=== PATIENT | female | born 1965 | race Caucasian/White ===

== ENCOUNTER 2020-12-25 09:46 | Emergency (ER) | payer SELFPAY ==
--- NOTE | ~2020-12-25 | XR_ITS ---
EXAMINATION: XR chest 2V DATE: 12/25/2020 10:21 INDICATION: Tachycardia. Left chest pain. TECHNIQUE: Frontal and lateral views of the chest were obtained. COMPARISON: None. FINDINGS: A calcified left lung nodule and calcified left hilar lymph nodes are consistent with old g ranulomatous disease. There is blunting of left posterior costophrenic angle, likely scarring. No sig nificant pleural effusion or pneumothorax. The heart size is normal. There is an old healed left rib fracture. IMPRESSION: 1. No acute cardiopulmonary disease. Reviewed, dictated and finalized at location A.
--- NOTE | 2020-12-25 09:50 | ECG_ITS ---
Measurements Intervals [place] Rate: 109 P: [place]: 0 QRS: 60 QRSD: 101 T: 239 QT: 355 QTc: 479 Interpretive Statements ATRIAL FIBRILLATION WITH RAPID VENTRICULAR RESPONSE LEFT VENTRICULAR HYPERTROPHY WITH ST-T CHANGE BORDERLINE ST-T WAVE ABNORMALITY- DIFFUSE LEADS BASELINE ARTIFACT- I, II, III, AVR, AVL, AVF, V1-V6 ABNORMAL ECG Electronically Signed On 12-25-2020 10:26:06 CDT by Delmer Boone D.O.
[2020-12-25 09:54] VITALS: BP 143/95; PULSE 97; RESP 19; TEMP 36.1; O2SAT 98
[2020-12-25 10:28] LABS: Basophils Percent Auto 0.9 % (0.2-1.2); Eosinophils Absolute Auto 0.1 K/mm3 (0-0.3); Eosinophils Percent Auto 1.1 % (0-4.4); Hemoglobin 15.1 g/dL (12.0-15.0); Immature Granulocyte Absolute 0.01 K/mm3 (0.00-0.031); Immature Granulocyte Percent A 0.2 % (0-0.5); Lymphocytes Absolute Auto 1.29 K/mm3 (0.9-3.2); Lymphocytes Percent Auto 29.1 % (18.3-44.2); Mean Corpuscular HGB Conc 34.3 g/dl (32-36); Mean Corpuscular Hemoglobin 30.6 pg (26-34); Mean Corpuscular Volume 89.1 fl (80-100); Mean Platelet Volume 9.8 fl (7.4-10.4); Monocytes Absolute Auto 0.5 K/mm3 (0.1-0.6); Monocytes Percent Auto 11.3 % (2.6-8.5); Neutrophils Absolute Auto 2.5 K/mm3 (1.3-6.7); Neutrophils Percent Auto 57.4 % (45.5-73.1); Platelet Count Result 328 k/mm3 (150-375); Red Blood Count 4.94 M/mm3 (4.2-5.4); Red Cell Distribution Width 13.9 % (11.5-14.5); White Blood Count 4.4 K/mm3 (4.5-10.0)
[2020-12-25] MEDS: ASPIRIN 81 MG CHEWABLE TABLET 324 MG PO (10:31)
[2020-12-25 10:37] LABS: Anion Gap 9 mmol/L (8-16); Blood Urea Nitrogen 17 mg/dL (7-17); Calcium 9.6 mg/dL (8.4-10.2); Carbon Dioxide 26 mmol/L (22-30); Chloride 98 mmol/L (98-107); Estimated CRCL calculation 84 ml/min; Estimated Glomerular Filt Rate > 60; Glucose 142 mg/dL (65-105); Potassium 4.2 mmol/L (3.4-5.0); Sodium 133 mmol/L (137-145)
[2020-12-25 10:43] LABS: INR 0.9; Prothrombin Time 12.6 Seconds (11.1-14.7)
[2020-12-25 10:45] LABS: Partial Thromboplastin Time 27.1 SECONDS (22.3-36.8)
[2020-12-25 10:49] LABS: Troponin I < 0.012 ng/mL (0.000-0.034)
[2020-12-25 11:15] LABS: Thyroid Stimulating Hormone Reflex 0.923 uIU/mL (0.465-4.68)
[2020-12-25 11:19] VITALS: BP 129/92; PULSE 96; RESP 15; O2SAT 100
[2020-12-25 12:42] VITALS: PULSE 76; RESP 12; O2SAT 99
[2020-12-25] MEDS: ENOXAPARIN 80 MG/0.8 ML SYRINGE SUB-Q (12:43)
[2020-12-25 13:00] VITALS: PULSE 61; RESP 15; O2SAT 97
--- NOTE | 2020-12-25 13:00 | PC.NURSE ---
When this RN entered room to give Cardizem as ordered, pt was in NSR on the monitor w/ rate of 61. EDP made aware, meds not given, EKG obtained.
--- NOTE | 2020-12-25 13:06 | ECG_ITS ---
Measurements Intervals [place] Rate: 63 P: 50 DC: 166 QRS: 60 QRSD: 96 T: 50 QT: 407 QTc: 419 Interpretive Statements SINUS RHYTHM POSSIBLE LEFT ATRIAL ENLARGEMENT INCOMPLETE RIGHT BUNDLE BRANCH BLOCK LEFT VENTRICULAR HYPERTROPHY AND ST-T CHANGE MINIMAL Q WAVES- ANTEROLATERAL LEADS BORDERLINE ECG Electronically Signed On 12-25-2020 13:50:05 CDT by Delmer Boone D.O.
[2020-12-25 13:28] LABS: Troponin I < 0.012 ng/mL (0.000-0.034)
--- NOTE | 2020-12-25 13:39 | ED.ARRPALP ---
HPI - Arrhythmia/Palpitations General Chief Complaint: Arrhythmia/Palpitations Stated Complaint: fast heart rate more frequent lately Time Seen by Provider: 12/25/20 10:56 Source: patient Mode of arrival: ambulatory Limitations: no limitations History of Present Illness HPI narrative: Patient is 55 years old white male presents with intermittent palpitation for the last 70 years, got worse over the last few days almost once or twice a day. Patient never been seen by a physician, smokes and drinks occasionally. Patient denies any fever, chills, nausea, vomiting, shortness of breath or chest pain. Related Data Allergies Allergy/AdvReac Type Severity Reaction Status Date / Time No Known Allergies Allergy Mild Verified 12/25/20 10:08 Review of Systems Review of Systems: Narrative: CONSTITUTIONAL: Denies fever, chills, or sweats. EYES: Denies visual changes, redness, or discharge. ENT: Denies rhinorrhea, congestion, sore throat, or otalgia. CARDIOVASCULAR: Denies chest pain, palpitations, or edema. RESPIRATORY: Denies cough or dyspnea. GASTROINTESTINAL: Denies abdominal pain, nausea, vomiting, or diarrhea. GENITOURINARY: Denies dysuria or hematuria. SKIN: Denies rash or itching. MUSCULOSKELETAL: Denies back pain, joint pain, or myalgia. NEUROLOGIC: Denies headache, numbness, or weakness. PSYCHIATRIC: Denies anxiety or depression. PMFSH Social History Social History Gender identity (if verbalized by the patient): Male Exam Narrative: Exam Narrative: General appearance: Well-developed, well-nourished Skin: Normal color Head: Normocephalic, nontraumatic Eyes: Clear conjunctiva ENT: Oropharynx normal, ears normal, nose normal Neck: Supple, nontender Chest and respiratory: Airway patent, no respiratory distress, no accessory muscle use Heart: Tachycardia, irregular irregularity Abdomen: Soft, nontender, no organomegaly, quiet bowel sounds Vascular: Normal peripheral pulses, normal capillary refill. Musculoskeletal: Normal range of motion, nontender back Neurologic: Alert and oriented ?3, [employer] is normal as tested, no gross motor deficit Course Course Emergency Course: Improving Vital Signs Vital signs: Vital Signs Temperature 36.1 C L 12/25/20 09:54 Pulse Rate 97 12/25/20 09:54 Respiratory Rate 19 12/25/20 09:54 Blood Pressure 143/95 H 12/25/20 09:54 Pulse Oximetry 98 12/25/20 09:54 Temperature 36.1 C L 12/25/20 09:54 Pulse Rate 61 12/25/20 13:00 Respiratory Rate 15 12/25/20 13:00 Blood Pressure 129/92 H 12/25/20 11:19 Pulse Oximetry 97 12/25/20 13:00 MDM - Arrhythmia/Palpitations MDM Narrative Medical decision making narrative: Patient presents with palpitation, monitor showing A. fib with RVR. Labs, EKG, chest x-ray ordered. Further plan to follow Differential Diagnosis Differential diagnosis: Likely palpitations, anxiety, sinus tachycardia, artial fibrillation and supraventricular tachycardia Lab Data Result diagrams: 12/25/20 10:07 12/25/20 10:07 Labs: Lab Results 12/25/20 12/25/20 12/25/20 Range/Units 10:06 10:07 10:07 WBC 4.4 L (4.5-10.0) K/mm3 RBC 4.94 (4.2-5.4) M/mm3 Hgb 15.1 H (12.0-15.0) g/dL Hct 44.0 (37.0-47.0) % MCV 89.1 (80-100) fl MCH 30.6 (26-34) pg MCHC 34.3 (32-36) g/dl RDW 13.9 (11.5-14.5) % Plt Count 328 (150-375) k/mm3 MPV 9.8 (7.4-10.4) fl Immature Gran % (Auto) 0.2 (0-0.5) % Neut % (Auto) 57.4 (45.5-73.1) % Lymph % (Auto) 29.1 (18.3-44.2) % [place] % (Auto) 11.3 H (2.6-8.5) % Eos % (Auto) 1.1 (0-4.4) % Baso % (Auto) 0
[2020-12-25] MEDS: METOPROLOL TARTRATE 25 MG TABLET PO (13:50)
[2020-12-25 14:00] VITALS: BP 159/101; PULSE 70; RESP 16; O2SAT 99
== END 2020-12-25 22:27 | disposition home or self-care (01) ==
PROVIDERS: Emergency Provider Emergency Medicine
DX: I48.91 Unspecified atrial fibrillation (principal); F17.200 Nicotine dependence, unspecified, uncomplicated; I51.7 Cardiomegaly; R94.31 Abnormal electrocardiogram [ECG] [EKG]; I45.10 Unspecified right bundle-branch block
CPT/HCPCS: 36415; 71046; 80048; 84443; 84484; 85025; 85610; 85730; 93005; 96372; 99284; A9270; J1650

== ENCOUNTER 2021-01-09 08:50 | Outpatient (CLI) | payer SELFPAY ==
--- NOTE | 2021-01-09 | ECHO_ITS ---
Patient Info Name: Ramiro Esposito Age: 55 years : 1965 Gender: Male Ht: 74 in Wt: 173 lbs BSA: 2.02 m2 HR: 51 bpm BP: 145 / 93 mmHg Heart Rhythm: Bradycardia Exam Date: 01/09/2021 9:28 AM Exam Location: [facility] Patient Status: Outpatient Admit Date: 01/09/2021 Staff Ordering Physician: Jackson Ashby MD Rn Cardiac Cath: Lorelei Hauser RDCS Attending Provider: Jackson Ashby MD Exam Type: CA echo doppler color flow Study Info Indications I48.0 - Paroxysmal atrial fibrillation Complete two-dimensional, color flow and Doppler transthoracic echocardiogram is performed. Summary 1. Complete two-dimensional, color flow and Doppler transthoracic echocardiogram is performed. 2. Mild LVH, borderline LV enlargement; normal LV systolic and diastolic function; LVEF about 60-65%. Mild right atrial enlargement. Normal mitral valve structure, no significant MR. Normal aortic valve structure, trace to mild aortic regurgitation. Trace TR, RVSP 35 mmHg. Sinus bradycardia. Left Ventricle Left ventricular systolic function is normal, estimated at 60-65%. The left ventricular diastolic function is normal. Right Ventricle Right ventricular chamber dimension is normal. Right ventricular systolic function is normal. Left Atria Left atrial chamber dimension is normal. Right Atria Right atrial chamber dimension is mildly enlarged. Aortic Valve The aortic valve is normal. There is no aortic valve stenosis. There is trace aortic valve regurgitation. Pulmonic Valve The pulmonic valve is normal. Mitral Valve The mitral valve has normal leaflets. There is no mitral valve regurgitation. Tricuspid Valve The tricuspid valve leaflets are normal. There is trace tricuspid valve regurgitation. Inferior Vena Cava Dilated inferior vena cava with <50% collapse upon inspiration consistent with elevated right atrial pressure, 10 mmHg. Left Ventricular Outflow Tract Name Value Normal LVOT 2D LVOT Diameter 2.4 cm LVOT Doppler LVOT Peak Gradient 4 mmHg LVOT Mean Gradient 2 mmHg LVOT VTI 26 cm LVOT VTI/AV VTI Ratio 0.8 LVOT Stroke Volume 118 ml LVOT CO 4.5 l/min LVOT CI 2.2 l/min/m2 Pulmonic Valve Name Value Normal RVOT Doppler RVOT Peak Gradient 1 mmHg PV Doppler PV Peak Gradient 2 mmHg Mitral Valve Name Value Normal MV Doppler
== END 2021-01-09 08:51 | disposition home or self-care (01) ==
PROVIDERS: Visit Provider Internal Medicine Cardiovascular Disease
DX: I48.0 Paroxysmal atrial fibrillation (principal)
CPT/HCPCS: 93306

== ENCOUNTER 2023-02-28 20:49 | Emergency (ER) | payer SELFPAY ==
[2023-02-28 20:49] VITALS: BP 102/78; PULSE 92; RESP 19; TEMP 36.7; O2SAT 96
--- NOTE | 2023-02-28 20:56 | PC.NURSE ---
Patient keeps repeating that he wants to leave, ERP notified and in room with patient and this nurse at this time.
--- NOTE | 2023-02-28 20:59 | ED.SYNCOPE ---
HPI - Syncope General Chief Complaint: Syncope Stated Complaint: PASSED OUT Time Seen by Provider: 02/28/23 20:55 History of Present Illness HPI narrative: Patient is a 57-year-old male with history of daily ETOH use here after passing out at the bar. He notes that he believes he drank too much today without eating and he got too drunk and passed out. He does not remember the incident but does believe he passed out. He states that he does not believe he hit his head but he is unsure. He does not believe he had prodromal chest pain or shortness of breath. He currently denies any symptoms. Is alert and oriented x4. Related Data Allergies Allergy/AdvReac Type Severity Reaction Status Date / Time No Known Allergies Allergy Mild Verified 12/25/20 10:08 Review of Systems Review of Systems: CONSTITUTIONAL: Denies fever, chills, or sweats. CARDIOVASCULAR: Denies chest pain, palpitations. Had a syncopal episode. RESPIRATORY: Denies cough or dyspnea. GASTROINTESTINAL: Denies abdominal pain, nausea, vomiting MUSCULOSKELETAL: Denies back pain, joint pain, or myalgia. NEUROLOGIC: Denies headache, numbness, or weakness. [facility] Social History Social History Gender identity (if verbalized by the patient): Male Exam Narrative: GENERAL: Well-appearing, well-nourished, and in no acute distress. HEAD: Normocephalic, atraumatic. EYES: PERRLA and EOMI. ENT: Nares clear, no rhinorrhea or epistaxis. Mucous membranes moist. NECK: Supple. No C-spine tenderness CHEST: Clear to auscultation. No respiratory distress. HEART: Regular rate and rhythm. No murmur heard. Normal peripheral pulses. No chest wall tenderness ABDOMEN: Soft, nontender, nondistended, normal active bowel sounds. EXTREMITIES: Normal range of motion. No edema. No thoracic or lumbar tenderness SKIN: Warm, dry, no rash. NEURO: No focal deficits. Alert and oriented x3. Clinically sober. PSYCH: Normal mood and affect. Course Course Emergency Course: Patient seen evaluated. In no acute distress. He appears to be clinically sober at this time. He reportedly had a syncopal episode at a bar however he does not remember it. He is currently alert and oriented. He did agree to vital signs however when I discussed doing possible lab work, imaging, EKG he adamantly refuses. He would prefer to leave this time. Patient is of sound mind and has capacity to make his own medical decisions at this time. At this time he would like to leave the hospital against medical advice. Risk of leaving include but no limited to cardiac arrhythmia, . Patient understands the risks at this time and would still like to leave the hospital against medical advice. He is advised that he return to the hospital at any time to complete further workup. He is being discharged with a sober ride home. Vital Signs Vital signs: Vital Signs Temperature 98.1 F 02/28/23 20:49 Pulse Rate 92 02/28/23 20:49 Respiratory Rate 19 02/28/23 20:49 Blood Pressure 102/78 02/28/23 20:49 Pulse Oximetry 96 02/28/23 20:49 Oxygen Delivery Room Air 02/28/23 20:49 Temperature 98.1 F 02/28/23 20:49 Pulse Rate 92 02/28/23 20:49 Respiratory Rate 19 02/28/23 20:49 Blood Pressure 102/78 02/28/23 20:49 Pulse Oximetry 96 02/28/23 20:49 Oxygen Delivery Room Air 02/28/23 20:49 Discharge Plan Discharge Clinical Impression: Syncope and collapse Patient Disposition: Left Against Medical Advice Condition: Guarded Prognosis Prescriptions: No Action metoprolol tartrate [Lopressor] 50 mg tablet 25 mg PO Q12H Qty: 60 0RF aspirin [Adult Aspirin Regimen] 81 mg tablet,delayed release (DR/EC) 81 mg PO DAILY Qty: 30 0RF Follow-up/Referrals: Barbara Barrientos MD [Primary Care Provider] - Time of Disposition: 21:07
== END 2023-02-28 21:04 | disposition left against medical advice (07) ==
PROVIDERS: Emergency Provider Student in an Organized Health Care Education/Training Program; PCP Family Medicine
DX: R55 Syncope and collapse (principal)
CPT/HCPCS: 99281

== ENCOUNTER 2023-07-15 13:21 | Inpatient (IN) | payer MEDICAID, SELFPAY ==
[2023-07-15] VITALS (14 sets, daily range): BP systolic 119–159; BP diastolic 91–121; PULSE 78–134; RESP 14–28; TEMP 36.2–36.9; O2SAT 95–100; BMI 26.0
--- NOTE | ~2023-07-15 | CT_ITS ---
EXAMINATION: CT abdomen pelvis w con DATE: 07/15/2023 14:35 INDICATION: Abdominal pain TECHNIQUE: Computed tomography (CT) of the abdomen and pelvis was performed with 100 mL Omnipaque-350 intravenous contrast. Automated exposure control and iterative reconstruction technique were employe d. The dose-length product was 643.90 mGy-cm. COMPARISON: None FINDINGS: There are small bilateral posterior layering pleural effusions. Groundglass opacities and some smooth septal line thickening in the bilateral lower lungs with dependent predominance likely combination o f atelectasis and mild pulmonary edema. Couple small calcified pleural plaques along the parietal ple ura at the posterior left lung base. Cardiomegaly. Atherosclerotic coronary artery calcification. No pericardial effusion. There is a small amount of perihepatic ascites. Fluid density at the periphery of the normal nondilated gallbladder which could represent either additional minimal ascites or edema tous wall thickening of the gallbladder wall. There is a gradient of increasing dependent density in the gallbladder consistent with layering sludge. Spleen, pancreas, bilateral kidneys and right adrena l gland are normal. Fusiform relatively low density left adrenal mass with Hounsfield units of 11 on postcontrast imaging most likely representing an adenoma. Small fat-containing umbilical hernia. Blad piotr is normal. There is fluid throughout much of the colon consistent with nonspecific diarrhea. Ther e are few sigmoid diverticula without adjacent from trace stranding to suggest diverticulitis. Small bowel and appendix are normal. No abscess or free intraperitoneal gas. No pathologically enlarged abd ominal or pelvic lymphadenopathy. Severe lumbar and moderate lower thoracic spondylosis. IMPRESSION: 1. Likely congestive heart failure with cardiomegaly, mild pulmonary edema at the lung bases and smal l bilateral pleural effusions. 2. Small amount of perihepatic and pericholecystic ascites which is nonspecific but which could also be related to congestive heart failure. 2. Fluid scattered throughout the colon consistent with nonspecific diarrhea. Reviewed, dictated and finalized at location A. GE HAND IMPRESSION: 1. Likely congestive heart failure with cardiomegaly, mild pulmonary edema at t he lung bases and small bilateral pleural effusions. 2. Small amount of perihepatic and pericholecystic ascites which is nonspecific but which could also be related to congestive heart failure. 2. Fluid scattered throughout the colon consistent with nonspecific diarrhea.
--- NOTE | ~2023-07-15 | NM_ITS ---
EXAMINATION: NM ivis stress w perfusion DATE: 07/17/2023 11:01 INDICATION: Congestive heart failure TECHNIQUE: Rest images were obtained following intravenous administration of 11 mCi Tc99m tetrofosmin (Myoview). The patient was infused intravenously with Lexiscan (Regadenoson). Then, 33.6 mCi Tc99m t etrofosmin (Myoview) was administered intravenously, and stress images were obtained in both the supi ne and prone positions. Data was reconstructed into short axis and horizontal and vertical long axis SPECT images. Gated SPECT images were also obtained. COMPARISON: None. FINDINGS: There is some likely diaphragmatic attenuation artifact along the inferior wall on the rest and stress images obtained in the supine position which normalizes with prone post stress imaging at stress and additional small region of decreased activity at the basilar anterolateral segment on the supine post stress imaging. There are no definitive perfusion abnormalities on the post stress imagi ng obtained in the prone position to suggest ischemia or infarction. Left ventricular enlargement wi th calculated end-diastolic volume of 255 mL. There is global hypokinesis with mild to moderately dec reased left ventricular ejection. Fraction measuring 32%. IMPRESSION: 1. Normal myocardial perfusion during stress. 2. Left ventricular enlargement with global hypokinesis resulting in mild to moderately decreased eje ction fraction measuring 32%. Reviewed, dictated and finalized at location A. R RECONNAISSANCE VEHICLE DRIVER IMPRESSION: 1. Normal myocardial perfusion during stress. 2. Left ventricular enlargement with global hypokinesis resulting in mild to mo derately decreased ejection fraction measuring 32%.
--- NOTE | ~2023-07-15 | XR_ITS ---
Portable chest x-ray Comparison: 12/25/2020 Clinical History: Dyspnea Findings: There is probable mild pulmonary edema pattern. Minimal left pleural effusion present. Ca rdiomediastinal silhouette is stable. Bones and soft tissues are unremarkable. Impression: Mild pulmonary edema with minimal left pleural effusion. Reviewed, dictated and finalized at [facility]. USEMENT OR RECREATION CARD CHECKER Impression: Mild pulmonary edema with minimal left pleural effusion.
--- NOTE | 2023-07-15 13:31 | ECG_ITS ---
Measurements Intervals [place] Rate: 125 P: [place]: 0 QRS: 17 QRSD: 109 T: -60 QT: 321 QTc: 464 Interpretive Statements ATRIAL FIBRILLATION WITH RAPID VENTRICULAR RESPONSE INCOMPLETE RIGHT BUNDLE BRANCH BLOCK POSSIBLE LEFT VENTRICULAR HYPERTROPHY WITH SECONDARY REPOLARIZATION ABNORMALITIES [VOLTAGE CRITERIA PLUS LAE OR QRS WIDENING] COMPARED TO ECG 12/25/2020 13:12:26 ATRIAL FIBRILLATION NOW PRESENT Electronically Signed On 07-15-2023 13:59:37 DIABETES SPECIALIST by Cleveland Gimenez M.D.
[2023-07-15] MEDS: MORPHINE SULFATE (*CRX) 2 MG/ML INJ IV PUSH (13:48)
[2023-07-15] MEDS: SODIUM CHLORIDE 0.9% IV 1,000 ML 999 ML IV CONT (13:48)
[2023-07-15] MEDS: ONDANSETRON INJ 4 MG/2 ML VIAL IV PUSH (13:48)
[2023-07-15] MEDS: dilTIAZem HCl INJ 25 MG/5 ML VIAL 10 MG IV PUSH (13:49)
[2023-07-15 13:53] LABS: Basophils Absolute Auto 0.1 K/mm3 (0.0-0.1); Basophils Percent Auto 0.7 % (0.2-1.2); Eosinophils Percent Auto 0.3 % (0-4.4); Hematocrit 40.7 % (42.0-52.0); Hemoglobin 13.3 g/dL (14.0-18.0); Immature Granulocyte Absolute 0.02 K/mm3 (0.00-0.031); Immature Granulocyte Percent A 0.3 % (0-0.5); Lymphocytes Absolute Auto 1.55 K/mm3 (0.9-3.2); Lymphocytes Percent Auto 21.1 % (18.3-44.2); Mean Corpuscular HGB Conc 32.7 g/dl (32-36); Mean Corpuscular Hemoglobin 29.4 pg (26-34); Mean Corpuscular Volume 89.8 fl (80-100); Mean Platelet Volume 10.4 fl (7.4-10.4); Monocytes Absolute Auto 0.7 K/mm3 (0.1-0.6); Monocytes Percent Auto 9.4 % (2.6-8.5); Neutrophils Percent Auto 68.2 % (45.5-73.1); Platelet Count Result 291 k/mm3 (150-375); Red Blood Count 4.53 M/mm3 (4.6-6.20); Red Cell Distribution Width 14.9 % (11.5-14.5); White Blood Count 7.3 K/mm3 (4.5-10.0)
[2023-07-15 14:15] LABS: INR 1.1; Prothrombin Time 14.5 Seconds (11.1-14.7)
[2023-07-15 14:19] LABS: Alanine Aminotransferase 53 U/L (6-50); Albumin Level 4.5 g/dL (3.5-5.1); Alkaline Phosphatase 72 U/L (38-126); Anion Gap 12 mmol/L (8-16); Aspartate Amino Transferase 57 U/L (17-59); Bilirubin,Total 0.7 mg/dL (0.2-1.3); Blood Urea Nitrogen 17 mg/dL (9-20); Calcium 9.9 mg/dL (8.4-10.2); Carbon Dioxide 24 mmol/L (22-30); Chloride 98 mmol/L (98-107); Estimated CRCL calculation 92 ml/min; Estimated Glomerular Filt Rate > 60; Ethanol < 10 mg/dL (<10); Glucose 120 mg/dL (65-110); Potassium 4.4 mmol/L (3.4-5.0); Sodium 134 mmol/L (137-145)
--- NOTE | 2023-07-15 14:22 | ECG_ITS ---
Measurements Intervals [place] Rate: 93 P: [place]: 0 QRS: 152 QRSD: 110 T: 28 QT: 390 QTc: 485 Interpretive Statements ATRIAL FIBRILLATION MARKED RIGHT AXIS DEVIATION [QRS AXIS > 100] INCOMPLETE RIGHT BUNDLE BRANCH BLOCK [90+ ms QRS DURATION, TERMINAL R IN V1/V2, 40+ ms S IN I/aVL/V4/V5/V6] POSSIBLE LEFT VENTRICULAR HYPERTROPHY [VOLTAGE CRITERIA PLUS LAE OR QRS WIDENING] NONSPECIFIC ST & T-WAVE ABNORMALITY COMPARED TO ECG 07/15/2023 13:40:19 NO LONGER IN RVR Electronically Signed On 07-15-2023 15:07:15 WHOLESALE MANAGER by Cleveland Gimenez M.D.
--- NOTE | 2023-07-15 14:22 | ED.ABDPAIN ---
HPI - Abdominal Pain General Chief Complaint: Abdominal Pain Stated Complaint: abdominal pain Time Seen by Provider: 07/15/23 13:26 History of Present Illness HPI narrative: patient presents to the emergency department with multiple complaints. Initially describes right lower quadrant pain this been going on for the past month. Initially coming in waves now persistent. Pain was also initially located in the right lower quadrant but now spread across the entire lower part of his abdomen. He has been nauseous without vomiting. States he cannot vomit although he tries. Denies diarrhea has had normal bowel movements. Patient has felt like he has had fevers and chills but does not have a thermometer at home. One put on the monitor he was in AFib RVR and states that a couple years ago he was told he was in AFib but did not take any medications for. Related Data Allergies Allergy/AdvReac Type Severity Reaction Status Date / Time No Known Allergies Allergy Mild Verified 07/15/23 13:22 Review of Systems Review of Systems: Negative except for [facility] Social History Social History Gender identity (if verbalized by the patient): Male Exam Narrative: GENERAL: Well-appearing, well-nourished, and in no acute distress. HEAD: Normocephalic, atraumatic. EYES: PERRLA and EOMI. ENT: Nares clear, no rhinorrhea or epistaxis. Mucous membranes moist. NECK: Supple. CHEST: Clear to auscultation. No respiratory distress. HEART: tachycardia with irregular rhythm. ABDOMEN: Soft, nontender, nondistended. EXTREMITIES: Normal range of motion. No edema. SKIN: Warm, dry, no rash. NEURO: No focal deficits. Alert and oriented x3. PSYCH: Normal mood and affect. Course Course Emergency Course: patient was in AFib RVR. Given bolus of diltiazem and his rate is now 90s. Repeat EKG pending pt back to afib rvr. dilt drip ordered with heparin. cardiology consulted. pt admitted to hospitalist Vital Signs Vital signs: Vital Signs Temperature 36.9 C 07/15/23 13:25 Pulse Rate 125 H 07/15/23 13:25 Respiratory Rate 20 07/15/23 13:25 Blood Pressure 159/117 H 07/15/23 13:25 Pulse Oximetry 100 12/19/23 13:25 Oxygen Delivery Room Air 07/15/23 13:25 Temperature 36.9 C 07/15/23 13:25 Pulse Rate 122 H 07/15/23 16:23 Respiratory Rate 25 H 07/15/23 16:23 Blood Pressure 140/121 H 07/15/23 16:23 Pulse Oximetry 98 07/15/23 16:23 Oxygen Delivery Room Air 07/15/23 13:25 MDM - Abdominal Pain Lab Data 07/15/23 13:46 07/15/23 13:46 Labs: Lab Results 07/15/23 07/15/23 07/15/23 Range/Units 13:46 14:52 15:47 WBC 7.3 (4.5-10.0) K/mm3 RBC 4.53 L (4.6-6.20) M/mm3 Hgb 13.3 L (14.0-18.0) g/dL Hct 40.7 L (42.0-52.0) % MCV 89.8 (80-100) fl MCH 29.4 (26-34) pg MCHC 32.7 (32-36) g/dl RDW 14.9 H (11.5-14.5) % Plt Count 291 (150-375) k/mm3 MPV 10.4 (7.4-10.4) fl Immature Gran % (Auto) 0.3 (0-0.5) % Neut % (Auto) 68.2 (45.5-73.1) % Lymph % (Auto) 21.1 (18.3-44.2) % [place] % (Auto) 9.4 H (2.6-8.5) % Eos % (Auto) 0.3 (0-4.4) % Baso % (Auto) 0.7 (0.2-1.2) % Lymph # (Auto) 1.55 (0.9-3.2) K/mm3 [place] # (Auto) 0.7 H (0.1-0.6) K/mm3 Eos # (Auto) 0.0 (0-0.3) K/mm3 Baso # (Auto) 0.1 (0.0-0.1) K/mm3 Abs Immat Gran (auto) 0.02 (0.00-0.031) K/mm3 Absolute Neuts (auto) 5.0 (1.3-6.7) K/mm3 Absolute Nucleated RBC 0.0 (0.0-0.012) K/mm3 Nucleated RBC % 0.0 (0.0-0.2) % PT 14.5 (11.1-14.7) Seconds INR 1.1 Sodium 134 L (137-145) mmol/L Potassium 4.4 (3.4-5.0) mmol/L Chloride 98 (98-107) mmol/L Carbon Dioxide 24 (22-30) mmol/L Anion Gap 12 (8-16) mmol/L BUN 17 (9-20) mg/dL Creatinine 0.90 (0.7-1.3) mg/dL Estim Creat Clear Calc 92 ml/min Estimated GFR
--- NOTE | 2023-07-15 14:25 | PC.NURSE ---
Pt to CT via stretcher on tele and O2 monitor at this time
[2023-07-15 14:28] LABS: Lactic Acid Reflex 2.6 mmol/L (0.7-2.0)
[2023-07-15 14:30] LABS: Troponin I < 0.012 ng/mL (0.000-0.034)
[2023-07-15 15:05] LABS: Influenza A QL RT-PCR Negative (Negative); Influenza B QL RT-PCR Negative (Negative); RSV RNA, RT-PCR Negative (Negative); SARS-CoV-2 RNA PCR Negative (Negative)
[2023-07-15 15:22] LABS: Troponin I < 0.012 ng/mL (0.000-0.034)
[2023-07-15 16:21] LABS: Amphetamine Screen Urine Negative (Negative); Barbiturate Screen Urine Negative (Negative); Benzodiazepines Screen Urine Negative (Negative); Cannabinoid Screen Urine Negative (Negative); Cocaine Screen Urine Negative (Negative); Methadone Screen Urine Negative (Negative); Opiate Screen Urine Positive (Negative); Phencyclidine Screen Urine Negative (Negative)
[2023-07-15 16:30] LABS: Appearance Urine Clear (Clear); Bacteria Urine None Seen /hpf; Bilirubin Urine Negative (Negative); Blood Urine Negative (Negative); Color Urine Yellow (Yellow); Glucose Urine UA Negative (Negative); Ketones Urine Negative (Negative); Leukocyte Esterase Ur Negative LEU/UL (Negative); Need Manual Microscopic Reviewed; Nitrate Urine Negative (Negative); Non Pathogenic Casts 0-2; Protein Urine Trace mg/dL (Negative); RBC Urine 0-2 /hpf (0-2); Specific Grav Ur 1.025 (1.001-1.035); Squamous Epithelial Cell Urine None seen /hpf (Few); Urobilinogen Urine 0.2 mg/dL (<2.0); WBC Urine 0-5 /hpf
[2023-07-15 16:32] LABS: Add Urine Microscopic? YES
[2023-07-15 16:50] LABS: Reflex Lactic Acid Yes or No Add Lactic
[2023-07-15 17:00] LABS: INR 1.1; Prothrombin Time 14.7 Seconds (11.1-14.7)
[2023-07-15 17:01] LABS: Partial Thromboplastin Time 29.1 SECONDS (22.3-36.8)
--- NOTE | 2023-07-15 17:15 | PM.CNCAR ---
Assessment and Plan Assessment and plan (1) Atrial fibrillation with rapid ventricular response: Code(s): I48.91 - Unspecified atrial fibrillation Status: Acute Assessment and Plan: Recurrence. [id number] 2 (hypertension, CHF). On aspirin. Rate control with Diltiazem drip. Start Sotalol 80 mg PO every 12 hours. Heparin drip started in ED. Discuss that he could benefit from anticoagulation now with CHADS 2 vs aspirin. Obtain echo. (2) Acute exacerbation of CHF (congestive heart failure): Qualifiers: Heart failure type: unspecified Qualified Code(s): I50.9 - Heart failure, unspecified Code(s): I50.9 - Heart failure, unspecified Status: Acute Assessment and Plan: Unknown type, but probably diastolic dysfunction with PAF. Diurese with Lasix 40 mg IV BID. Monitor electrolytes. (3) Abdominal pain: Qualifiers: Abdominal location: right lower quadrant Qualified Code(s): R10.31 - Right lower quadrant pain Code(s): R10.9 - Unspecified abdominal pain Status: Acute Assessment and Plan: Related to volume overload based on CT findings. (4) Tobacco abuse: Code(s): Z72.0 - Tobacco use Status: Acute Assessment and Plan: Counseled regarding smoking cessation. History of Present Illness History of Present Illness Consult date/time: 07/15/23 17:15 Reason For Visit: abdominal pain Narrative: 57 yr old man presents to ER with sob. He has a history of PAF in 2020 with no recurrence until now, smoking, hypertension, dyslipidemia. Reports that for last 1 month he noted more ADAN walking short distances when normally he can walk a mile. He felt some palpitations. He smokes 1 ppd. He states he had sharp abdominal pain that is intermittent. Denies chest pain, edema, dizziness. Review of Systems Review of Systems: All systems reviewed & are unremarkable except as noted in HPI and below Constitutional: Constitutional: Reports as per HPI and Reports fatigue Cardiovascular: Cardiovascular: Reports as per HPI, Denies chest pain, Reports irregular heart rhythm, Denies leg edema and Denies lightheadedness Respiratory: Respiratory: Reports as per HPI and Reports dyspnea Gastrointestinal: Gastrointestinal: Reports as per HPI and Reports abdominal pain Genitourinary: Genitourinary: Reports as per HPI and Denies dysuria Musculoskeletal: Musculoskeletal: Reports as per HPI Neurologic: Reports as per HPI, Denies dizziness and Denies syncope [facility] Social History Social History Gender identity (if verbalized by the patient): Male Meds Home Medications and Allergies Home Medications Medication Instructions Recorded Confirmed Type aspirin 81 mg tablet,delayed 81 mg PO DAILY #30 tabs 12/25/20 Rx release (Adult Aspirin Regimen) metoprolol tartrate 50 mg tablet 25 mg PO Q12H #60 tabs 12/25/20 Rx (Lopressor) Allergies Allergy/AdvReac Type Severity Reaction Status Date / Time No Known Allergies Allergy Mild Verified 07/15/23 13:22 Vital Signs Vital Signs - 24 hr 07/15/23 13:25 07/15/23 14:22 07/15/23 15:00 Temperature 98.5 F Pulse Rate 125 H 114 H 115 H Respiratory Rate 20 28 H 17 Blood Pressure 159/117 H 119/102 H 130/105 H Pulse Oximetry 100 98 98 Oxygen Delivery Room Air 07/15/23 16:23 07/15/23 16:39 Temperature Pulse Rate 122 H 122 H Respiratory Rate 25 H 18 Blood Pressure 140/121 H 148/110 H Pulse Oximetry 98 100 Oxygen Delivery Exam Const: General: cooperative, healthy appearing and comfortable Resp: Auscultation: clear to auscultation bilaterally, no crackles, no rales, no rhonchi and no wheezes Cardio: Rate: tachycardic Rhythm: abnormal rhythm Heart sounds: no murmurs Peripheral pulses: dorsalis pedis present GI: GI Palp: Yes Soft to palpation and Yes Tenderness to palpation present (GI) Neuro: General: oriented to pers
[2023-07-15] MEDS: FUROSEMIDE INJ 40 MG/4 ML VIAL IV PUSH (17:27)
[2023-07-15] MEDS: HEPARIN SODIUM 5,000 UNITS/ML VIAL 7000 UNITS IV PUSH (17:30)
[2023-07-15 17:31] LABS: Ethanol < 10 mg/dL (<10)
[2023-07-15] MEDS: dilTIAZem 100 MG/100 ML 100 MG/100 ML BAG IV CONT (17:33)
[2023-07-15] MEDS: HEPARIN SOD/D5W 100 UNITS/ML 25,000 UNITS/250 ML BAG 15 UNITS IV CONT (17:35)
--- NOTE | 2023-07-15 17:52 | PM.IMHP ---
H&P: HPI History of Present Illness Date/Time: 07/15/23 17:52 Chief Complaint: SOB, Abdominal Pain Narrative: 57 y/o M presents here with SOB and abdominal pain with PMH of AFib, tobacco use, dyslipidemia, and HTN. patient reports that he has been experiencing abdominal pain the last 30 days and shortness of breath for the past 6 days. Abdominal pain has primarily been his right lower quadrant, initially intermittent and now more constant. pain with associated nausea without emesis. No change in stool consistency or frequency. Does report his abdomen has felt more distended/swollen in the past few days. Reports alcohol use 3 times per week, approximately 8 beers each session. However, previous documentation reports daily alcohol use with episode of passing out at the bar in February of this year. No additional areas of swelling i.e. his lower extremities. Shortness of breath is not associated with any fever, chills, chest pain, or rhinorrhea. ED workup revealed recurrent AFib with RVR and imaging consistent with volume overload. Patient reports he had been previously diagnosed with AFib been placed on metoprolol and aspirin. Reports he has medications made him feel goofy , tired , and just felt bad so he self-discontinued these medications. Also reported initial concern for discoloration of his penis. Described it as more purple than usual around the glans. Upon his reassessment, discoloration has resolved. Review of Systems Review of Systems: All systems reviewed & are unremarkable except as noted in HPI and below PMFSH Past Medical History Medical History Atrial fibrillation with rapid ventricular response Dyslipidemia HTN (hypertension) Tobacco abuse Social History Social History (Updated 07/15/23 @ 19:59 by Margy Johnston APRN) Smoking status: Current every day smoker Alcohol intake: current Gender identity (if verbalized by the patient): Male Meds Home Medications and Allergies Home Medications Medication Instructions Recorded Confirmed Type aspirin 81 mg tablet,delayed 81 mg PO DAILY #30 tabs 12/25/20 Rx release (Adult Aspirin Regimen) metoprolol tartrate 50 mg tablet 25 mg PO Q12H #60 tabs 12/25/20 Rx (Lopressor) Allergies Allergy/AdvReac Type Severity Reaction Status Date / Time No Known Allergies Allergy Mild Verified 07/15/23 13:22 Vital Signs Vital Signs - 24 hr 07/15/23 13:25 07/15/23 14:22 07/15/23 15:00 Temperature 98.5 F Pulse Rate 125 H 114 H 115 H Respiratory Rate 20 28 H 17 Blood Pressure 159/117 H 119/102 H 130/105 H Pulse Oximetry 100 98 98 Oxygen Delivery Room Air 07/15/23 16:23 07/15/23 16:39 07/15/23 17:33 Temperature Pulse Rate 122 H 122 H 124 H Respiratory Rate 25 H 18 Blood Pressure 140/121 H 148/110 H 131/111 H Pulse Oximetry 98 100 Oxygen Delivery 07/15/23 17:41 Temperature Pulse Rate 134 H Respiratory Rate 14 Blood Pressure 131/111 H Pulse Oximetry 97 Oxygen Delivery Exam Const: General: comfortable and no acute distress HENMT: Face/Nose/Sinus: Normal nares present Mouth: Yes moist mucous membranes Eyes: General: appearance normal, both eyes and all related structures Sclera: sclerae normal Pupils: Equal, round and reactive pupils present EOM: EOMs intact bilaterally Resp: Auscultation: crackles Other: crackles, mid to lower lobes bilaterally. mild to moderate conversational dyspnea. Cardio: Rate: tachycardic Rhythm: abnormal rhythm Other: no murmur or rub. GI: Other: mildly firm, normal bowel sounds. : Male General Exam: Yes normal external exam Skin: General skin exam: normal color and no rashes or lesions noted Wounds: no wounds Neuro: Speech: normal speech Motor exam (neuro): 5/5 motor strength present throughout Sensory Exam: normal sensation Other: A/Ox4 Psych: Mental Status: ment
--- NOTE | 2023-07-15 19:11 | PC.NURSE ---
Report given to Ronald APPLE, all questions answered.
--- NOTE | 2023-07-15 19:23 | ECG_ITS ---
Measurements Intervals [place] Rate: 71 P: 45 CA: 169 QRS: 47 QRSD: 117 T: 10 QT: 362 QTc: 394 Interpretive Statements SINUS RHYTHM BASELINE ARTIFACT MODERATE INTRAVENTRICULAR CONDUCTION DELAY [110+ ms QRS DURATION] NONSPECIFIC ST & T-WAVE ABNORMALITY ABNORMAL ECG COMPARED TO ECG 07/15/2023 14:49:04 SINUS RHYTHM NOW PRESENT INTRAVENTRICULAR CONDUCTION DELAY NOW PRESENT Electronically Signed On 07-16-2023 15:37:27 HEALTH SCIENCE SPECIALIST by Kt Evans M.D.
--- NOTE | 2023-07-15 21:11 | ADMGEN ---
This patient, Ramiro Esposito, was admitted to IMU Room 213-01. Patient/family oriented to hospital policies and general routines including ID bracelet, bed and alarms, visiting hours, pain management, procedures, bathroom and other care routines, personal items, smoking policy, room service/diet, and visiting hours. Information on how to activate the Rapid Response Team has been discussed. Patient/Family are encouraged to report perceived risks to care and to ask questions if they do not understand what they are told or what they should do.
[2023-07-15] MEDS: SOTALOL HCL 80 MG TABLET PO (21:25)
--- NOTE | 2023-07-15 22:00 | ECG_ITS ---
Measurements Intervals [place] Rate: 95 P: NM: 0 QRS: 29 QRSD: 109 T: 162 QT: 416 QTc: 524 Interpretive Statements ATRIAL FIBRILLATION POSSIBLE RIGHT VENTRICULAR CONDUCTION DELAY [RSR (QR) IN V1/V2] POSSIBLE LEFT VENTRICULAR HYPERTROPHY [VOLTAGE CRITERIA PLUS LAE OR QRS WIDENING] ST DEVIATION AND MODERATE T-WAVE ABNORMALITY, CONSIDER LATERAL ISCHEMIA [-0.1+ mV T WAVE IN I/aVL/V5/V6] ABNORMAL ECG COMPARED TO ECG 07/15/2023 20:47:20 ATRIAL FIBRILLATION NOW PRESENT Electronically Signed On 07-16-2023 15:39:40 REFRACTORY FURNACE DESIGNER by Kt Evans M.D.
[2023-07-16] VITALS (21 sets, daily range): BP systolic 111–140; BP diastolic 84–101; PULSE 67–112; RESP 16–24; TEMP 36.2–36.9; O2SAT 95–100
--- NOTE | 2023-07-16 | ECHO_ITS ---
Patient Info Name: Ramiro Esposito Age: 57 years : 1965 Gender: Male Ht: 74 in Wt: 190 lbs BSA: 2.12 m2 HR: 88 bpm BP: 126 / 99 mmHg Heart Rhythm: Sinus Rhythm Technical Quality: Good Exam Date: 07/16/2023 10:22 AM Exam Location: Echo Lab Patient Status: Inpatient Admit Date: 07/15/2023 Staff Ordering Physician: Delmer Boone DO Air Dispatcher: Paulie Hoffmann RDCS Attending Provider: Stacy Pizano DO Referring Physician: Paolo QUILES; Exam Type: CA echo doppler color flow Study Info Indications - CHF, A-FIB Complete two-dimensional, color flow and Doppler transthoracic echocardiogram is performed. Summary 1. Complete two-dimensional, color flow and Doppler transthoracic echocardiogram is performed. 2. Left ventricular chamber dimension is moderately enlarged. 3. Left ventricular systolic function is severely globally reduced, estimated at 25-30%. 4. The left ventricular diastolic function is abnormal. 5. E/e' 16 is elevated. 6. Right ventricular systolic function is mildly reduced. 7. Right ventricular chamber dimension is mildly enlarged. 8. Left atrial chamber dimension is moderately enlarged. 9. Right atrial chamber dimension is severely enlarged. 10. There is mild to moderate mitral valve regurgitation. 11. There is moderate tricuspid valve regurgitation. 12. No pulmonary hypertension, estimated pulmonary arterial systolic pressure is 31 mmHg. 13. Normal inferior vena cava with <50% collapse upon inspiration consistent with elevated right atrial pressure, 10 mmHg. 14. There is trivial pericardial effusion. Left Ventricle E/e' 16 is elevated. Left ventricular chamber dimension is moderately enlarged. Left ventricular systolic function is severely globally reduced, estimated at 25-30%. The left ventricular diastolic function is abnormal. Right Ventricle Right ventricular systolic function is mildly reduced. Right ventricular chamber dimension is mildly enlarged. Left Atria Left atrial chamber dimension is moderately enlarged. Right Atria Right atrial chamber dimension is severely enlarged. Aortic Valve The aortic valve is trileaflet. There is no aortic valve stenosis. There is no aortic valve regurgitation. Pulmonic Valve There is no pulmonic regurgitation. Mitral Valve There is no mitral valve stenosis. There is mild to moderate mitral valve regurgitation. Tricuspid Valve There is moderate tricuspid valve regurgitation. No pulmonary hypertension, estimated pulmonary arterial systolic pressure is 31 mmHg. Pericardium/Pleural There is trivial pericardial effusion. Inferior Vena Cava Normal inferior vena cava with <50% collapse upon inspiration consistent with elevated right atrial pressure, 10 mmHg. Aorta The aortic root size at the sinus of Valsalva is normal. Left Ventricular Outflow Tract Name Value Normal LVOT 2D LVOT Diameter 2.2 cm LVOT Doppler LVOT Peak Gradient 1 mmHg LVOT Mean Gradient 1 mmHg LVOT VTI 16 cm LVOT VTI/AV VTI Ratio 1.1 LVOT Stroke Volume 60 ml LVOT CO
[2023-07-16 00:02] LABS: INR 1.1; Prothrombin Time 15.1 Seconds (11.1-14.7)
[2023-07-16 00:04] LABS: Partial Thromboplastin Time 69.9 SECONDS (22.3-36.8)
[2023-07-16] MEDS: ONDANSETRON INJ 4 MG/2 ML VIAL IV PUSH (00:26)
[2023-07-16] MEDS: HEPARIN SODIUM 5,000 UNITS/ML VIAL 3500 UNITS IV PUSH ×2 (00:28→07:33)
[2023-07-16] MEDS: dilTIAZem 100 MG/100 ML 100 MG/100 ML BAG IV CONT (04:28)
[2023-07-16 07:04] LABS: Basophils Absolute Auto 0.1 K/mm3 (0.0-0.1); Basophils Percent Auto 1.1 % (0.2-1.2); Eosinophils Absolute Auto 0.1 K/mm3 (0-0.3); Eosinophils Percent Auto 1.1 % (0-4.4); Hematocrit 37.3 % (42.0-52.0); Hemoglobin 12.1 g/dL (14.0-18.0); Immature Granulocyte Absolute 0.01 K/mm3 (0.00-0.031); Immature Granulocyte Percent A 0.2 % (0-0.5); Lymphocytes Absolute Auto 1.44 K/mm3 (0.9-3.2); Lymphocytes Percent Auto 26.1 % (18.3-44.2); Mean Corpuscular HGB Conc 32.4 g/dl (32-36); Mean Corpuscular Hemoglobin 29.2 pg (26-34); Mean Corpuscular Volume 90.1 fl (80-100); Mean Platelet Volume 10.6 fl (7.4-10.4); Monocytes Absolute Auto 0.6 K/mm3 (0.1-0.6); Monocytes Percent Auto 10.7 % (2.6-8.5); Neutrophils Absolute Auto 3.4 K/mm3 (1.3-6.7); Neutrophils Percent Auto 60.8 % (45.5-73.1); Platelet Count Result 255 k/mm3 (150-375); Red Blood Count 4.14 M/mm3 (4.6-6.20); White Blood Count 5.5 K/mm3 (4.5-10.0)
[2023-07-16 07:08] LABS: Alanine Aminotransferase 63 U/L (6-50); Albumin Level 3.8 g/dL (3.5-5.1); Alkaline Phosphatase 82 U/L (38-126); Anion Gap 7 mmol/L (8-16); Aspartate Amino Transferase 62 U/L (17-59); Bilirubin,Total 0.6 mg/dL (0.2-1.3); Blood Urea Nitrogen 19 mg/dL (9-20); Carbon Dioxide 24 mmol/L (22-30); Chloride 104 mmol/L (98-107); Estimated CRCL calculation 77 ml/min; Estimated Glomerular Filt Rate > 60; Glucose 101 mg/dL (65-110); Magnesium 2.2 mg/dL (1.6-2.3); Potassium 4.9 mmol/L (3.4-5.0); Sodium 135 mmol/L (137-145)
[2023-07-16 07:10] LABS: Partial Thromboplastin Time 56.1 SECONDS (22.3-36.8)
--- NOTE | 2023-07-16 08:06 | PM.PNCARD ---
Progress Note: A&P Assessment and Plan (1) Atrial fibrillation with rapid ventricular response: Code(s): I48.91 - Unspecified atrial fibrillation Status: Acute Assessment and Plan: Recurrence. [id number] 2 (hypertension, CHF). On aspirin. Rate control with Diltiazem drip. Started 07/15/23 Sotalol 80 mg PO every 12 hours. Heparin drip started in ED. Discuss that he could benefit from anticoagulation now with CHADSVasc 2 vs aspirin. Obtain echo today. Stop heparin drip and Diltiazem drip. Start Diltiazem 60 mg PO every 6 hours with parameters. Increase Aspirin 325 mg daily as he prefers this over warfarin, but if Eliquis or Xarelto is not cost-prohibitive then would prefer him to be on that. (2) Acute exacerbation of CHF (congestive heart failure): Qualifiers: Heart failure type: unspecified Qualified Code(s): I50.9 - Heart failure, unspecified Code(s): I50.9 - Heart failure, unspecified Status: Acute Assessment and Plan: Unknown type, but probably diastolic dysfunction with PAF. Diurese with Lasix 40 mg IV BID. Monitor electrolytes. (3) Abdominal pain: Qualifiers: Abdominal location: right lower quadrant Qualified Code(s): R10.31 - Right lower quadrant pain Code(s): R10.9 - Unspecified abdominal pain Status: Acute Assessment and Plan: Related to volume overload based on CT findings. (4) Tobacco abuse: Code(s): Z72.0 - Tobacco use Status: Acute Assessment and Plan: Counseled regarding smoking cessation and alcohol cessation (he drinks 30 pack beer a week). Subjective Date/time seen: 07/16/23 08:06 Interval history: Denies chest pain or sob. Has some abdominal discomfort intermittently. Exam Const: General: cooperative, healthy appearing and comfortable Orientation/consciousness: oriented to person, oriented to place and oriented to time Resp: Auscultation: clear to auscultation bilaterally, no crackles, no rales, no rhonchi and no wheezes Cardio: Rate: tachycardic Rhythm: abnormal rhythm Heart sounds: no murmurs Peripheral pulses: dorsalis pedis present Neuro: General: oriented to person, oriented to place and oriented to time Extrem: Right lower extremity: no edema Left lower extremity: no edema Objective Data Vital Signs Vital Signs: Vital Signs - 24 hr 07/15/23 13:25 07/15/23 14:22 07/15/23 15:00 Temperature 98.5 F Pulse Rate 125 H 114 H 115 H Respiratory Rate 20 28 H 17 Blood Pressure 159/117 H 119/102 H 130/105 H Pulse Oximetry 100 98 98 Oxygen Delivery Room Air 07/15/23 16:23 07/15/23 16:39 07/15/23 17:33 Temperature Pulse Rate 122 H 122 H 124 H Respiratory Rate 25 H 18 Blood Pressure 140/121 H 148/110 H 131/111 H Pulse Oximetry 98 100 Oxygen Delivery 07/15/23 17:41 07/15/23 18:54 07/15/23 18:54 Temperature Pulse Rate 134 H 118 H 111 H Respiratory Rate 14 15 Blood Pressure 131/111 H 120/91 H 120/91 H Pulse Oximetry 97 95 Oxygen Delivery 07/15/23 19:18 07/15/23 20:49 07/15/23 21:25 Temperature 98 F Pulse Rate 106 H 86 85 Respiratory Rate 19 16 Blood Pressure 124/97 H 131/114 H Pulse Oximetry 96 97 Oxygen Delivery 07/15/23 21:25 07/15/23 20:55 07/15/23 21:47 Temperature 97.2 F L Pulse Rate 85 93 89 Respiratory Rate 20 Blood Pressure 130/98 H 130/98 H Pulse Oximetry 99 Oxygen Delivery 07/15/23 22:00 07/16/23 00:00 07/15/23 22:00 Temperature Pulse Rate 80 78 78 Respiratory Rate 20 Blood Pressure Pulse Oximetry 99 Oxygen Delivery Room Air 07/16/23 00:14 07/16/23 02:00 07/16/23 04:00 Temperature 97.2 F L Pulse Rate 77 68 83 Respiratory Rate 18 Blood Pressure 118/89 Pulse Oximetry 95 Oxygen Delivery 07/16/23 04:00 07/16/23 04:28 07/16/23 04:58 Temperature 97.2 F L Pulse Rate 83 111 H 77 Respiratory Rate 18 20 Blood Pressure 118/89 126/99 H Pulse Oximetry 95 96 Oxygen Deli
[2023-07-16] MEDS: PANTOPRAZOLE 40 MG TABLET PO (09:00)
[2023-07-16] MEDS: SOTALOL HCL 80 MG TABLET PO ×2 (09:01→20:39)
[2023-07-16] MEDS: ASPIRIN 325 MG ENTERIC TABLET PO (10:00)
--- NOTE | 2023-07-16 10:00 | ECG_ITS ---
Measurements Intervals [place] Rate: 103 P: [place]: 0 QRS: 34 QRSD: 106 T: 150 QT: 388 QTc: 509 Interpretive Statements ATRIAL FIBRILLATION WITH RAPID VENTRICULAR RESPONSE POSSIBLE RIGHT VENTRICULAR CONDUCTION DELAY [RSR (QR) IN V1/V2] POSSIBLE LEFT VENTRICULAR HYPERTROPHY [VOLTAGE CRITERIA PLUS LAE OR QRS WIDENING] ST DEVIATION AND MODERATE T-WAVE ABNORMALITY, CONSIDER ANTEROLATERAL ISCHEMIA [-0.1+ mV T WAVE IN V3-V6] ABNORMAL ECG COMPARED TO ECG 07/15/2023 22:40:36 NO SIGNIFICANT CHANGES Electronically Signed On 07-16-2023 15:55:59 UNDERGROUND CONDUIT INSTALLER by Kt Evans M.D.
[2023-07-16] MEDS: NICOTINE (*PBKC) 21 MG PATCH 1 PATCH TRANSDERM (11:20)
[2023-07-16] MEDS: dilTIAZem HCL 60 MG TABLET PO ×3 (12:25→22:53)
--- NOTE | 2023-07-16 15:52 | PM.IMPN ---
Progress Note: A&P Assessment and Plan (1) Atrial fibrillation with rapid ventricular response: Code(s): I48.91 - Unspecified atrial fibrillation Status: Acute Assessment and Plan: Recurrent atrial fibrillation, self discontinued metoprolol and aspirin previously. Cardiology has been consulted [id number] 2 - continue ASA, Transitioned to PO diltiazem heparin drip d/c. Start sotalol 80 mg p.o. Q12H. echo ordered, pending read. Lasix 40 mg IVP b.i.d. Trend labs and serial EKG daily weights and I&Os. (2) Shortness of breath: Code(s): R06.02 - Shortness of breath Status: Acute Assessment and Plan: CT abd/pelvis showed likely congestive heart failure with cardiomegaly, mild pulmonary edema at the lung bases and small bilateral pleural effusions. Small amount of perihepatic and pericholecystic ascites which is nonspecific but which could also be related to congestive heart failure. Fluid scattered throughout the colon consistent with nonspecific diarrhea. CXR showed mild pulmonary edema with minimal left pleural effusion. Patient current smoker, interested in cessation. Shortness of breath likely secondary to volume overload. Trop negative x2. (3) Abdominal pain: Qualifiers: Abdominal location: right lower quadrant Qualified Code(s): R10.31 - Right lower quadrant pain Code(s): R10.9 - Unspecified abdominal pain Status: Acute Assessment and Plan: AST 62, ALT 63 this am, will continue to monitor CT findings consistent with volume overload likely secondary to HF. hx of daily ETOH use. will start PPI. (4) Tobacco abuse: Code(s): Z72.0 - Tobacco use Status: Acute Assessment and Plan: ready for cessation. nicotine patches in interim. Plan Home Meds/Chronic Conditions - no current home medications. Diet: Heart healthy GI Prophylaxis: pantoprazole started DVT Prophylaxis: SCDs, aspirin Lines: pIV Code Status: Full Code Subjective Date/time seen: 07/16/23 15:52 Interval history: Patient sitting up in bed in no acute stress. However, he reports he feels the same as when he was admitted. Cardiology is following and made some adjustments to his plan today, heparin drip and Diltazem drip are now d/c. Care coordination consulted for possible Xarelto or Eliquis on d/c, but he does not have insurance. Discussed will likely go home on warfarin. Discussed smoking cessation, patient plans on quitting and requested use of a nicotine patch. Will continue to monitor, ECHO pending read and cardiology recommendations. Review of Systems Review of Systems: All systems reviewed & are unremarkable except as noted in HPI and below Exam Const: General: comfortable and no acute distress HENMT: Face/Nose/Sinus: Normal nares present Mouth: Yes moist mucous membranes Eyes: General: appearance normal, both eyes and all related structures Pupils: Equal, round and reactive pupils present EOM: EOMs intact bilaterally Neck: Neck: supple Resp: Effort & Inspection: normal respiratory effort Auscultation: clear to auscultation bilaterally and crackles Other: crackles, mid to lower lobes bilaterally. Cardio: Rate: tachycardic Rhythm: abnormal rhythm Other: no murmur or rub. GI: Other: mildly firm, normal bowel sounds. : Male General Exam: Yes normal external exam Skin: General skin exam: normal color and no rashes or lesions noted Wounds: no wounds Neuro: Cranial nerves: Yes Equal, round and reactive pupils present Speech: normal speech Motor exam (neuro): 5/5 motor strength present throughout Sensory Exam: normal sensation Other: A/Ox4 Psych: Mental Status: mental status grossly normal Affect: normal affect Other: No tremor, agitation, hallucinations. Objective Data Vital Signs Vital Signs: Vital Signs - 24 hr 07/15/23 16
[2023-07-16] MEDS: FUROSEMIDE INJ 40 MG/4 ML VIAL 20 MG IV PUSH (17:27)
--- NOTE | 2023-07-16 17:30 | PC.NURSE ---
Upon entry to the patients room, this RN noted another nurse in the room. She stated that the patient was feeling very dizzy and leaning against the wall. Assisted back to bed. This is the second episode of dizziness reported to this RN during this shift while the patient was standing up after using the bathroom. Vital signs remain stable during these episodes. Once back in bed, there are no complaints of dizziness or shortness of breath. Nasal cannula replaced at 2L. Instructed to use the call light and moving forward we would use a bedside commode should he have an urge to have a BM and need a toilet. Verbalizes understanding at this time. Urinals remain at the patients bedside within reach.
[2023-07-16] MEDS: SACUBITRIL/VALSARTAN 24-26 MG TABLET 1 TAB PO (20:39)
--- NOTE | 2023-07-16 22:00 | ECG_ITS ---
Measurements Intervals [place] Rate: 93 P: [place]: 0 QRS: 35 QRSD: 118 T: 152 QT: 402 QTc: 502 Interpretive Statements ATRIAL FIBRILLATION POSSIBLE RIGHT VENTRICULAR CONDUCTION DELAY [RSR (QR) IN V1/V2] POSSIBLE LEFT VENTRICULAR HYPERTROPHY [VOLTAGE CRITERIA PLUS LAE OR QRS WIDENING] ST DEVIATION AND MODERATE T-WAVE ABNORMALITY, CONSIDER LATERAL ISCHEMIA [-0.1+ mV T WAVE IN I/aVL/V5/V6] ABNORMAL ECG COMPARED TO ECG 07/16/2023 10:02:10 NO SIGNIFICANT CHANGES Electronically Signed On 07-17-2023 17:35:53 STAND UP FORKLIFT OPERATOR by Yahir Jeronimo M.D.
[2023-07-17] VITALS (18 sets, daily range): BP systolic 122–136; BP diastolic 85–103; PULSE 64–116; RESP 16–20; TEMP 36.3–36.8; O2SAT 96–100
--- NOTE | 2023-07-17 | EST_ITS ---
Patient Info Name: Ramiro Esposito Age: 57 years : 1965 Gender: Male Ht: 74 in Wt: 203 lbs BSA: 2.20 m2 HR: 105 bpm BP: 133 / 99 mmHg Heart Rhythm: Atrial Fibrillation Exam Date: 07/17/2023 8:39 AM Exam Location: Echo Lab Patient Status: Inpatient Admit Date: 07/15/2023 Staff Ordering Physician: Delmer Boone DO Attending Provider: Stacy Pizano DO Exercise Technologist: Lexi Meraz CT Exercise Physician: Delmer Boone DO Exam Type: CA stress ivis w NM Study Info Indications I50.40 - Unspecified combined systolic (congestive) and diastolic (congestive) heart failure A regadenoson stress test was performed. Summary 1. 1. Negative lexiscan stress test for ischemic ST changes by ECG criteria. 2. 2. Stable hemodynamics throughout the test. 3. 3. Nuclear scan to follow and will be reported separately. Please correlate with it. 4. 4. Patient informed of the above results. Protocol: Lexiscan Stress ECG Details Stage: REST Duration (min): 1 min : 22 sec HR (bpm): 90 SBP (mmHg): 138 DBP (mmHg): 99 Stage: REST Duration (min): 19 min : 47 sec HR (bpm): 83 SBP (mmHg): 138 DBP (mmHg): 99 Stage: STAGE 1 Duration (min): 1 min : 0 sec HR (bpm): 77 SBP (mmHg): 135 DBP (mmHg): 90 Stage: RECOVERY Duration (min): 1 min : 0 sec HR (bpm): 96 SBP (mmHg): 135 DBP (mmHg): 90 Stage: RECOVERY Duration (min): 2 min : 0 sec HR (bpm): 92 SBP (mmHg): 135 DBP (mmHg): 90 Stage: RECOVERY Duration (min): 2 min : 51 sec HR (bpm): 92 SBP (mmHg): 142 DBP (mmHg): 101 Rest HR: 83 bpm Peak HR: 110 bpm Rest Sys BP: 138 mmHg Peak Sys BP: 142 mmHg Max Pred HR: 163 bpm % Max Pred HR: 67 % Target HR: 139 bpm Max RPP: 15,620 bpm*mmHg Termination Reason: Completed protocol Cardiac Symptoms: Shortness of breath Total Time: 1 min : 0 sec Rest Taylor BP: 99 mmHg Peak Taylor BP: 101 mmHg Total Dose: 0.4 mg Resting ECG Atrial fibrillation. Stress ECG No ST changes. Arrhythmias No other than atrial fibrillation. Report Signatures
[2023-07-17 06:45] LABS: Hematocrit 37.2 % (42.0-52.0); Hemoglobin 12.1 g/dL (14.0-18.0); Mean Corpuscular HGB Conc 32.5 g/dl (32-36); Mean Corpuscular Hemoglobin 29.1 pg (26-34); Mean Corpuscular Volume 89.4 fl (80-100); Mean Platelet Volume 10.5 fl (7.4-10.4); Platelet Count Result 230 k/mm3 (150-375); Red Blood Count 4.16 M/mm3 (4.6-6.20); Red Cell Distribution Width 14.6 % (11.5-14.5); White Blood Count 5.2 K/mm3 (4.5-10.0)
[2023-07-17 06:52] LABS: Alanine Aminotransferase 63 U/L (6-50); Albumin Level 3.6 g/dL (3.5-5.1); Alkaline Phosphatase 87 U/L (38-126); Anion Gap 6 mmol/L (8-16); Aspartate Amino Transferase 41 U/L (17-59); Bilirubin,Total 0.5 mg/dL (0.2-1.3); Blood Urea Nitrogen 16 mg/dL (9-20); Calcium 8.3 mg/dL (8.4-10.2); Carbon Dioxide 24 mmol/L (22-30); Chloride 104 mmol/L (98-107); Estimated CRCL calculation 84 ml/min; Estimated Glomerular Filt Rate > 60; Glucose 94 mg/dL (65-110); Potassium 3.7 mmol/L (3.4-5.0); Sodium 134 mmol/L (137-145)
--- NOTE | 2023-07-17 07:33 | PC.NURSE ---
Patient having pauses and decrease in heart rate into the 30's (lowest seen 37-39 on the monitor). Cardizem held and discussed findings with Dr. Boone. Medication not administered and held per Dr. Boone's order. Will continue to monitor.
--- NOTE | 2023-07-17 08:09 | PM.PNCARD ---
Progress Note: A&P Assessment and Plan (1) Atrial fibrillation with rapid ventricular response: Code(s): I48.91 - Unspecified atrial fibrillation Status: Acute Assessment and Plan: Recurrence. [id number] 2 (hypertension, CHF). On aspirin. Rate control with Diltiazem drip. Started 07/15/23 Sotalol 80 mg PO every 12 hours. Heparin drip started in ED. Discuss that he could benefit from anticoagulation now with CHADSVasc 2 vs aspirin. Stopped heparin drip and Diltiazem drip. Started Diltiazem 60 mg PO every 6 hours with parameters. Increased Aspirin 325 mg daily as he prefers this over warfarin, but if Eliquis or Xarelto is not cost-prohibitive then would prefer him to be on that. Stopped Diltiazem as he was getting bradycardic overnight. (2) Acute exacerbation of CHF (congestive heart failure): Qualifiers: Heart failure type: unspecified Qualified Code(s): I50.9 - Heart failure, unspecified Code(s): I50.9 - Heart failure, unspecified Status: Acute Assessment and Plan: Acute systolic and diastolic heart failure. Differential includes alcoholic cardiomyopathy, tachycardia-induced CM, CAD. 07/16/23 Echo: EF 25-30%, mod LVE, diastolic dysfunction (E/e' 16), mild RVE, mild RV dysfunction, mod LAE, severe KIKI, mild-mod MR, mod TR. Started Entresto, Jardiance, Spironolactone. For beta rolanda he is on Sotalol already for PAF. Diurese with Lasix 20 mg IV BID and Spironolactone 25 mg daily. Monitor electrolytes. Discuss Life vest to prevent sudden cardiac arrest and he is interested. Will order. Obtain Lexiscan myoview stress test. (3) Abdominal pain: Qualifiers: Abdominal location: right lower quadrant Qualified Code(s): R10.31 - Right lower quadrant pain Code(s): R10.9 - Unspecified abdominal pain Status: Acute Assessment and Plan: Related to volume overload based on CT findings. (4) Tobacco abuse: Code(s): Z72.0 - Tobacco use Status: Acute Assessment and Plan: Counseled regarding smoking cessation and alcohol cessation (he drinks 30 pack beer a week). Subjective Date/time seen: 07/17/23 08:09 Interval history: Denies chest pain or sob or abdominal pain. Exam Const: General: cooperative, healthy appearing and comfortable Orientation/consciousness: oriented to person, oriented to place and oriented to time Resp: Auscultation: clear to auscultation bilaterally, no crackles, no rales, no rhonchi and no wheezes Cardio: Rate: regular rate Rhythm: abnormal rhythm Heart sounds: no murmurs Peripheral pulses: dorsalis pedis present Neuro: General: oriented to person, oriented to place and oriented to time Extrem: Right lower extremity: no edema Left lower extremity: no edema Objective Data Vital Signs Vital Signs: Vital Signs - 24 hr 07/16/23 09:01 07/16/23 12:00 07/16/23 12:00 Temperature 97.5 F L Pulse Rate 91 101 H 108 H Respiratory Rate 24 H Blood Pressure 140/97 H Pulse Oximetry 100 Oxygen Delivery Oxygen Flow Rate 07/16/23 12:00 07/16/23 14:00 07/16/23 16:00 Temperature 97.6 F Pulse Rate 101 H 102 H 100 Respiratory Rate 24 H 20 Blood Pressure 130/96 H Pulse Oximetry 100 100 Oxygen Delivery Nasal Cannula Oxygen Flow Rate 2 07/16/23 16:00 07/16/23 16:00 07/16/23 18:00 Temperature Pulse Rate 108 H 100 91 Respiratory Rate 20 Blood Pressure Pulse Oximetry 100 Oxygen Delivery Nasal Cannula Oxygen Flow Rate 2 07/16/23 18:36 07/16/23 18:37 07/16/23 18:37 Temperature Pulse Rate Respiratory Rate Blood Pressure 118/101 H 111/84 121/95 H Pulse Oximetry Oxygen Delivery Oxygen Flow Rate 07/16/23 20:00 07/16/23 20:00 07/16/23 20:39 Temperature 98.4 F Pulse Rate 101 H 101 H 101 H Respiratory Rate 20 20 Blood Pressure 124/100 H Pulse Oximetry 98 98 Oxygen Delivery Nasal Cannula Oxygen Flow Rate 2 07/16/23 20:00 07/16/23
--- NOTE | 2023-07-17 10:00 | ECG_ITS ---
Measurements Intervals [place] Rate: 100 P: [place]: 0 QRS: 26 QRSD: 110 T: 169 QT: 409 QTc: 528 Interpretive Statements ATRIAL FIBRILLATION WITH RAPID VENTRICULAR RESPONSE POSSIBLE RIGHT VENTRICULAR CONDUCTION DELAY [RSR (QR) IN V1/V2] POSSIBLE LEFT VENTRICULAR HYPERTROPHY [VOLTAGE CRITERIA PLUS LAE OR QRS WIDENING] ST DEVIATION AND MODERATE T-WAVE ABNORMALITY, CONSIDER ANTEROLATERAL ISCHEMIA [-0.1+ mV T WAVE IN V3-V6] ABNORMAL ECG COMPARED TO ECG 07/16/2023 22:23:03 NO SIGNIFICANT CHANGES Electronically Signed On 07-17-2023 17:55:19 EDUCATIONAL ADVISOR by Yahir Jeronimo M.D.
[2023-07-17] MEDS: ASPIRIN 325 MG ENTERIC TABLET PO (10:07)
[2023-07-17] MEDS: EMPAGLIFLOZIN 10 MG TABLET PO (10:08)
[2023-07-17] MEDS: SPIRONOLACTONE 25 MG TABLET PO (10:08)
[2023-07-17] MEDS: SOTALOL HCL 80 MG TABLET PO ×2 (10:08→20:53)
[2023-07-17] MEDS: PANTOPRAZOLE 40 MG TABLET PO (10:08)
[2023-07-17] MEDS: FUROSEMIDE INJ 40 MG/4 ML VIAL 20 MG IV PUSH ×2 (10:08→17:05)
[2023-07-17] MEDS: SACUBITRIL/VALSARTAN 24-26 MG TABLET 1 TAB PO ×2 (10:08→20:53)
[2023-07-17] MEDS: NICOTINE (*PBKC) 21 MG PATCH 1 PATCH TRANSDERM (10:09)
--- NOTE | 2023-07-17 16:03 | P.PNIM_ITS ---
Progress Note: A&P Assessment and Plan (1) Atrial fibrillation with rapid ventricular response: Code(s): I48.91 - Unspecified atrial fibrillation Status: Acute Assessment and Plan: * Recurrent atrial fibrillation, self discontinued metoprolol and aspirin previously. * Cardiology following * [id number] 2 - continue ASA, started on Entresto, Jardiance and spironolactone * Transitioned to PO diltiazem, d/c due to bradycardia overnight * heparin drip d/c. * Start sotalol 80 mg p.o. Q12H. * echo showed 25-30% EF, stress tests done today * Will be d/c with Life Vest * Lasix 40 mg IVP b.i.d. * Trend labs and serial EKG * daily weights and I&Os. (2) Shortness of breath: Code(s): R06.02 - Shortness of breath Status: Acute Assessment and Plan: * CT abd/pelvis showed likely congestive heart failure with cardiomegaly, mild pulmonary edema at the lung bases and small bilateral pleural effusions. Small amount of perihepatic and pericholecystic ascites which is nonspecific but which could also be related to congestive heart failure. Fluid scattered throughout the colon consistent with nonspecific diarrhea. * CXR showed mild pulmonary edema with minimal left pleural effusion. * Patient current smoker, interested in cessation. * Shortness of breath likely secondary to volume overload; improved with Lasix * Trop negative x2. (3) Abdominal pain: Qualifiers: Abdominal location: right lower quadrant Qualified Code(s): R10.31 - Right lower quadrant pain Code(s): R10.9 - Unspecified abdominal pain Status: Acute Assessment and Plan: * AST 41, ALT 63 this am, will continue to monitor * hx of daily ETOH use. will start PPI. * patient plans to never smoke or drink alcohol again (4) Tobacco abuse: Code(s): Z72.0 - Tobacco use Status: Acute Assessment and Plan: * ready for cessation. nicotine patches in interim. Plan Home Meds/Chronic Conditions - no current home medications. Diet: Heart healthy GI Prophylaxis: pantoprazole started DVT Prophylaxis: SCDs, aspirin Lines: pIV Code Status: Full Code Subjective Date/time seen: 07/17/23 16:03 Interval history: Patient sitting up in bed in no acute stress. He is feeling a little better today, cardiology made some changes to his medications. Stress tests done today. Apnea link showed suspected breathing disorder, score of 16. Would likely benefit from CPAP. Review of Systems Review of Systems: All systems reviewed & are unremarkable except as noted in HPI and below Exam Const: General: comfortable and no acute distress HENMT: Face/Nose/Sinus: Normal nares present Mouth: Yes moist mucous membranes Eyes: General: appearance normal, both eyes and all related structures Pupils: Equal, round and reactive pupils present EOM: EOMs intact bilaterally Neck: Neck: supple Resp: Effort & Inspection: normal respiratory effort Auscultation: clear to auscultation bilaterally Cardio: Rhythm: abnormal rhythm GI: Other: mildly firm, normal bowel sounds. Skin: General skin exam: normal color and no rashes or lesions noted Wounds: no wounds Neuro: Cranial nerves: Yes Equal, round and reactive pupils present Speech: normal speech Motor exam (neuro): 5/5 motor strength present throughout Sensory Exam: norm
--- NOTE | 2023-07-17 16:03 | PM.IMPN ---
Progress Note: A&P Assessment and Plan (1) Atrial fibrillation with rapid ventricular response: Code(s): I48.91 - Unspecified atrial fibrillation Status: Acute Assessment and Plan: Recurrent atrial fibrillation, self discontinued metoprolol and aspirin previously. Cardiology following [id number] 2 - continue ASA, started on Entresto, Jardiance and spironolactone Transitioned to PO diltiazem, d/c due to bradycardia overnight heparin drip d/c. Start sotalol 80 mg p.o. Q12H. echo showed 25-30% EF, stress tests done today Will be d/c with Life Vest Lasix 40 mg IVP b.i.d. Trend labs and serial EKG daily weights and I&Os. (2) Shortness of breath: Code(s): R06.02 - Shortness of breath Status: Acute Assessment and Plan: CT abd/pelvis showed likely congestive heart failure with cardiomegaly, mild pulmonary edema at the lung bases and small bilateral pleural effusions. Small amount of perihepatic and pericholecystic ascites which is nonspecific but which could also be related to congestive heart failure. Fluid scattered throughout the colon consistent with nonspecific diarrhea. CXR showed mild pulmonary edema with minimal left pleural effusion. Patient current smoker, interested in cessation. Shortness of breath likely secondary to volume overload; improved with Lasix Trop negative x2. (3) Abdominal pain: Qualifiers: Abdominal location: right lower quadrant Qualified Code(s): R10.31 - Right lower quadrant pain Code(s): R10.9 - Unspecified abdominal pain Status: Acute Assessment and Plan: AST 41, ALT 63 this am, will continue to monitor hx of daily ETOH use. will start PPI. patient plans to never smoke or drink alcohol again (4) Tobacco abuse: Code(s): Z72.0 - Tobacco use Status: Acute Assessment and Plan: ready for cessation. nicotine patches in interim. Plan Home Meds/Chronic Conditions - no current home medications. Diet: Heart healthy GI Prophylaxis: pantoprazole started DVT Prophylaxis: SCDs, aspirin Lines: pIV Code Status: Full Code Subjective Date/time seen: 07/17/23 16:03 Interval history: Patient sitting up in bed in no acute stress. He is feeling a little better today, cardiology made some changes to his medications. Stress tests done today. Apnea link showed suspected breathing disorder, score of 16. Would likely benefit from CPAP. Review of Systems Review of Systems: All systems reviewed & are unremarkable except as noted in HPI and below Exam Const: General: comfortable and no acute distress HENMT: Face/Nose/Sinus: Normal nares present Mouth: Yes moist mucous membranes Eyes: General: appearance normal, both eyes and all related structures Pupils: Equal, round and reactive pupils present EOM: EOMs intact bilaterally Neck: Neck: supple Resp: Effort & Inspection: normal respiratory effort Auscultation: clear to auscultation bilaterally Cardio: Rhythm: abnormal rhythm GI: Other: mildly firm, normal bowel sounds. Skin: General skin exam: normal color and no rashes or lesions noted Wounds: no wounds Neuro: Cranial nerves: Yes Equal, round and reactive pupils present Speech: normal speech Motor exam (neuro): 5/5 motor strength present throughout Sensory Exam: normal sensation Other: A/Ox4 Psych: Mental Status: mental status grossly normal Affect: normal affect Other: No tremor, agitation, hallucinations. Objective Data Vital Signs Vital Signs: Vital Signs - 24 hr 07/16/23 18:00 07/16/23 18:36 07/16/23 18:37 Temperature Pulse Rate 91 Respiratory Rate Blood Pressure 118/101 H 111/84 Pulse Oximetry Oxygen Delivery Oxygen Flow Rate 07/16/23 18:37 07/16/23 20:00 07/16/23 20:00 Temperature 98.4 F Pulse Rate 101 H 101 H Respiratory Rate 20 20 Blood Pressure 121/95 H 124
[2023-07-17] MEDS: WATER FOR IRRIGATION, STERILE 1,000 ML BOTTLE 1000 ML (21:35)
--- NOTE | 2023-07-17 22:00 | ECG_ITS ---
Measurements Intervals [place] Rate: 93 P: [place]: 0 QRS: -67 QRSD: 109 T: 129 QT: 407 QTc: 507 Interpretive Statements ATRIAL FIBRILLATION POSSIBLE RIGHT VENTRICULAR CONDUCTION DELAY [RSR (QR) IN V1/V2] LEFT ANTERIOR FASCICULAR BLOCK [QRS AXIS <= -45, QR IN I, RS IN II] POSSIBLE LEFT VENTRICULAR HYPERTROPHY [VOLTAGE CRITERIA PLUS LAE OR QRS WIDENING] ST DEVIATION AND MODERATE T-WAVE ABNORMALITY, CONSIDER ANTEROLATERAL ISCHEMIA [-0.1+ mV T WAVE IN V3-V6] ABNORMAL ECG WARNING: DATA QUALITY MAY AFFECT INTERPRETATION COMPARED TO ECG 07/17/2023 11:30:28 AXIS IS MORE LEFTWARD Electronically Signed On 07-18-2023 15:03:25 [employer] by Yahir Jeronimo M.D.
--- NOTE | 2023-07-17 22:22 | PC.NURSE ---
EKG done following 2nd dose of soltalol. QTc 458. Assisted with starting patient on Cpap tonight. Education regarding sleep apnea and Cpap use including affects on the heart and how the machine works.
[2023-07-18] VITALS (18 sets, daily range): BP systolic 110–151; BP diastolic 76–97; PULSE 48–126; RESP 18–22; TEMP 36.2–36.8; O2SAT 92–99
[2023-07-18 05:29] LABS: Hematocrit 39.5 % (42.0-52.0); Hemoglobin 13.2 g/dL (14.0-18.0); Mean Corpuscular HGB Conc 33.4 g/dl (32-36); Mean Corpuscular Hemoglobin 29.6 pg (26-34); Mean Corpuscular Volume 88.6 fl (80-100); Mean Platelet Volume 10.4 fl (7.4-10.4); Platelet Count Result 249 k/mm3 (150-375); Red Blood Count 4.46 M/mm3 (4.6-6.20); Red Cell Distribution Width 14.4 % (11.5-14.5); White Blood Count 6.3 K/mm3 (4.5-10.0)
[2023-07-18 05:49] LABS: Alanine Aminotransferase 58 U/L (6-50); Albumin Level 3.5 g/dL (3.5-5.1); Alkaline Phosphatase 86 U/L (38-126); Anion Gap 7 mmol/L (8-16); Aspartate Amino Transferase 39 U/L (17-59); Bilirubin,Total 0.6 mg/dL (0.2-1.3); Blood Urea Nitrogen 13 mg/dL (9-20); Calcium 8.3 mg/dL (8.4-10.2); Carbon Dioxide 24 mmol/L (22-30); Chloride 105 mmol/L (98-107); Estimated CRCL calculation 84 ml/min; Estimated Glomerular Filt Rate > 60; Glucose 91 mg/dL (65-110); Potassium 3.6 mmol/L (3.4-5.0); Sodium 136 mmol/L (137-145)
--- NOTE | 2023-07-18 07:56 | PM.PNCARD ---
Progress Note: A&P Assessment and Plan (1) Atrial fibrillation with rapid ventricular response: Code(s): I48.91 - Unspecified atrial fibrillation Status: Acute Assessment and Plan: Recurrence. [id number] 2 (hypertension, CHF). On aspirin. Rate control with Diltiazem drip. Started 07/15/23 Sotalol 80 mg PO every 12 hours. Heparin drip started in ED. Discuss that he could benefit from anticoagulation now with CHADSVasc 2 vs aspirin. Stop Diltiazem. Stop Sotalol as he has not cardioverted on it, and it appears he has more persistent atrial fibrillation, and would like him anticoagulated for 3-4 weeks prior to consideration for DC cardioversion. Start Digoxin 125 mcg PO BID for rate control and Coreg 25 mg BID. Stop aspirin as his stress test is negative. Start Eliquis 5 mg PO BID for anticoagulation. (2) Acute exacerbation of CHF (congestive heart failure): Qualifiers: Heart failure type: unspecified Qualified Code(s): I50.9 - Heart failure, unspecified Code(s): I50.9 - Heart failure, unspecified Status: Acute Assessment and Plan: Acute systolic and diastolic heart failure. Differential includes alcoholic cardiomyopathy, tachycardia-induced CM, CAD. 07/16/23 Echo: EF 25-30%, mod LVE, diastolic dysfunction (E/e' 16), mild RVE, mild RV dysfunction, mod LAE, severe KIKI, mild-mod MR, mod TR. 07/17/23 Lexiscan myoview stress test is negative. Entresto, Jardiance, Spironolactone. Start Coreg. Change Lasix 40 mg PO BID and on Spironolactone 25 mg daily. Monitor electrolytes. Discuss Life vest to prevent sudden cardiac arrest and he is interested. Ordered already awaiting placement. (3) Abdominal pain: Qualifiers: Abdominal location: right lower quadrant Qualified Code(s): R10.31 - Right lower quadrant pain Code(s): R10.9 - Unspecified abdominal pain Status: Acute Assessment and Plan: Related to volume overload based on CT findings. (4) Tobacco abuse: Code(s): Z72.0 - Tobacco use Status: Acute Assessment and Plan: Counseled regarding smoking cessation and alcohol cessation (he drinks 30 pack beer a week). Subjective Date/time seen: 07/18/23 07:56 Interval history: Denies chest pain or sob or abdominal pain. Exam Const: General: cooperative, healthy appearing and comfortable Orientation/consciousness: oriented to person, oriented to place and oriented to time Resp: Auscultation: clear to auscultation bilaterally, no crackles, no rales, no rhonchi and no wheezes Cardio: Rate: tachycardic Rhythm: abnormal rhythm Heart sounds: no murmurs Peripheral pulses: dorsalis pedis present Neuro: General: oriented to person, oriented to place and oriented to time Extrem: Right lower extremity: no edema Left lower extremity: no edema Objective Data Vital Signs Vital Signs: Vital Signs - 24 hr 07/17/23 10:08 07/17/23 08:00 07/17/23 08:00 Temperature Pulse Rate 111 H 99 99 Respiratory Rate Blood Pressure Pulse Oximetry Oxygen Delivery Room Air 07/17/23 10:00 07/17/23 11:55 07/17/23 11:55 Temperature Pulse Rate 109 H 104 H 104 H Respiratory Rate 16 Blood Pressure Pulse Oximetry 99 Oxygen Delivery Room Air 07/17/23 12:00 07/17/23 12:00 07/17/23 16:00 Temperature 98.3 F 97.3 F L Pulse Rate 111 H 100 111 H Respiratory Rate 16 20 Blood Pressure 123/103 H 136/89 Pulse Oximetry 100 98 Oxygen Delivery 07/17/23 16:00 07/17/23 16:00 07/17/23 14:00 Temperature Pulse Rate 111 H 111 H 108 H Respiratory Rate 20 Blood Pressure Pulse Oximetry 98 Oxygen Delivery Room Air 07/17/23 18:00 07/17/23 20:13 07/17/23 20:53 Temperature 97.8 F Pulse Rate 116 H 89 93 Respiratory Rate 20 Blood Pressure 128/95 H Pulse Oximetry 99 Oxygen Delivery 07/17/23 20:00 07/17/23 22:25 07/18/23 00:31 Temperature 97.8 F Pulse Rate 93 79 84 Respiratory Rate 20 20
[2023-07-18] MEDS: PANTOPRAZOLE 40 MG TABLET PO (09:48)
[2023-07-18] MEDS: SPIRONOLACTONE 25 MG TABLET PO (09:48)
[2023-07-18] MEDS: carvediloL 25 MG TABLET PO ×2 (09:49→20:39)
[2023-07-18] MEDS: APIXABAN 5 MG TABLET PO ×2 (09:49→20:39)
[2023-07-18] MEDS: EMPAGLIFLOZIN 10 MG TABLET PO (09:49)
[2023-07-18] MEDS: SACUBITRIL/VALSARTAN 24-26 MG TABLET 1 TAB PO (09:49)
[2023-07-18] MEDS: DIGOXIN TAB 125 MCG TABLET PO ×2 (09:49→17:01)
[2023-07-18] MEDS: NICOTINE (*PBKC) 21 MG PATCH 1 PATCH TRANSDERM (09:49)
[2023-07-18] MEDS: FUROSEMIDE 40 MG TABLET PO ×2 (09:49→17:01)
--- NOTE | 2023-07-18 15:31 | P.PNIM_ITS ---
Progress Note: A&P Assessment and Plan (1) Atrial fibrillation with rapid ventricular response: Code(s): I48.91 - Unspecified atrial fibrillation Status: Acute Assessment and Plan: * Recurrent atrial fibrillation, self discontinued metoprolol and aspirin previously. * Cardiology following * [id number] 2 - continue ASA, started on Entresto, Jardiance and spironolactone * Stop Diltiazem. Stop Sotalol as he has not cardioverted on it * echo showed 25-30% EF, stress tests negative d/c ASA * Start Digoxin 125 mcg PO BID for rate control and Coreg 25 mg BID. * Start Eliquis 5 mg PO BID for anticoagulation. * Will be d/c with Life Vest * Lasix 40 mg PO BID * Trend labs and serial EKG * daily weights and I&Os. (2) Shortness of breath: Code(s): R06.02 - Shortness of breath Status: Acute Assessment and Plan: * CT abd/pelvis showed likely congestive heart failure with cardiomegaly, mild pulmonary edema at the lung bases and small bilateral pleural effusions. Small amount of perihepatic and pericholecystic ascites which is nonspecific but which could also be related to congestive heart failure. Fluid scattered throughout the colon consistent with nonspecific diarrhea. * CXR showed mild pulmonary edema with minimal left pleural effusion. * Patient current smoker, interested in cessation. * Shortness of breath likely secondary to volume overload; improved with Lasix * Trop negative x2. (3) Abdominal pain: Qualifiers: Abdominal location: right lower quadrant Qualified Code(s): R10.31 - Right lower quadrant pain Code(s): R10.9 - Unspecified abdominal pain Status: Acute Assessment and Plan: * AST 39, ALT 58 this am, will continue to monitor * hx of daily ETOH use. on PPI. * patient plans to never smoke or drink alcohol again (4) Tobacco abuse: Code(s): Z72.0 - Tobacco use Status: Acute Assessment and Plan: * ready for cessation. nicotine patches in interim. Plan Home Meds/Chronic Conditions - no current home medications. Diet: Heart healthy GI Prophylaxis: pantoprazole DVT Prophylaxis: SCDs, Eliquis Lines: pIV Code Status: Full Code Subjective Date/time seen: 07/18/23 15:31 Interval history: Patient sitting up in bed in no acute stress. Cardiology following and will continue recommendations. CPAP settings needed to be adjusted today as it made it difficult for him last night. Plan for d/c when cleared by cardiology. Review of Systems Review of Systems: All systems reviewed & are unremarkable except as noted in HPI and below Exam Const: General: comfortable and no acute distress HENMT: Face/Nose/Sinus: Normal nares present Mouth: Yes moist mucous membranes Eyes: General: appearance normal, both eyes and all related structures Pupils: Equal, round and reactive pupils present EOM: EOMs intact bilaterally Neck: Neck: supple Resp: Effort & Inspection: normal respiratory effort Auscultation: clear to auscultation bilaterally Cardio: Rhythm: abnormal rhythm Other: no murmur or rub. GI: Other: mildly firm, normal bowel sounds. Skin: General skin exam: normal color and no rashes or lesions noted Wounds: no wounds Neuro: Cranial nerves: Yes Equal, round and reactive pupils present Speech: normal speech Motor exam (ne
--- NOTE | 2023-07-18 15:31 | PM.IMPN ---
Progress Note: A&P Assessment and Plan (1) Atrial fibrillation with rapid ventricular response: Code(s): I48.91 - Unspecified atrial fibrillation Status: Acute Assessment and Plan: Recurrent atrial fibrillation, self discontinued metoprolol and aspirin previously. Cardiology following [id number] 2 - continue ASA, started on Entresto, Jardiance and spironolactone Stop Diltiazem. Stop Sotalol as he has not cardioverted on it echo showed 25-30% EF, stress tests negative d/c ASA Start Digoxin 125 mcg PO BID for rate control and Coreg 25 mg BID. Start Eliquis 5 mg PO BID for anticoagulation. Will be d/c with Life Vest Lasix 40 mg PO BID Trend labs and serial EKG daily weights and I&Os. (2) Shortness of breath: Code(s): R06.02 - Shortness of breath Status: Acute Assessment and Plan: CT abd/pelvis showed likely congestive heart failure with cardiomegaly, mild pulmonary edema at the lung bases and small bilateral pleural effusions. Small amount of perihepatic and pericholecystic ascites which is nonspecific but which could also be related to congestive heart failure. Fluid scattered throughout the colon consistent with nonspecific diarrhea. CXR showed mild pulmonary edema with minimal left pleural effusion. Patient current smoker, interested in cessation. Shortness of breath likely secondary to volume overload; improved with Lasix Trop negative x2. (3) Abdominal pain: Qualifiers: Abdominal location: right lower quadrant Qualified Code(s): R10.31 - Right lower quadrant pain Code(s): R10.9 - Unspecified abdominal pain Status: Acute Assessment and Plan: AST 39, ALT 58 this am, will continue to monitor hx of daily ETOH use. on PPI. patient plans to never smoke or drink alcohol again (4) Tobacco abuse: Code(s): Z72.0 - Tobacco use Status: Acute Assessment and Plan: ready for cessation. nicotine patches in interim. Plan Home Meds/Chronic Conditions - no current home medications. Diet: Heart healthy GI Prophylaxis: pantoprazole DVT Prophylaxis: SCDs, Eliquis Lines: pIV Code Status: Full Code Subjective Date/time seen: 07/18/23 15:31 Interval history: Patient sitting up in bed in no acute stress. Cardiology following and will continue recommendations. CPAP settings needed to be adjusted today as it made it difficult for him last night. Plan for d/c when cleared by cardiology. Review of Systems Review of Systems: All systems reviewed & are unremarkable except as noted in HPI and below Exam Const: General: comfortable and no acute distress HENMT: Face/Nose/Sinus: Normal nares present Mouth: Yes moist mucous membranes Eyes: General: appearance normal, both eyes and all related structures Pupils: Equal, round and reactive pupils present EOM: EOMs intact bilaterally Neck: Neck: supple Resp: Effort & Inspection: normal respiratory effort Auscultation: clear to auscultation bilaterally Cardio: Rhythm: abnormal rhythm Other: no murmur or rub. GI: Other: mildly firm, normal bowel sounds. Skin: General skin exam: normal color and no rashes or lesions noted Wounds: no wounds Neuro: Cranial nerves: Yes Equal, round and reactive pupils present Speech: normal speech Motor exam (neuro): 5/5 motor strength present throughout Sensory Exam: normal sensation Other: A/Ox4 Psych: Mental Status: mental status grossly normal Affect: normal affect Other: No tremor, agitation, hallucinations. Objective Data Vital Signs Vital Signs: Vital Signs - 24 hr 07/17/23 16:00 07/17/23 16:00 07/17/23 16:00 Temperature 97.3 F L Pulse Rate 111 H 111 H 111 H Respiratory Rate 20 20 Blood Pressure 136/89 Pulse Oximetry 98 98 Oxygen Delivery Room Air 07/17/23 18:00 07/17/23 20:13 07/17/23 20:53 Temperature 97.8 F Pulse Rate 116
[2023-07-18] MEDS: SACUBITRIL/VALSARTAN 49-51 MG TABLET 1 TABLET PO (20:39)
[2023-07-19] VITALS (7 sets, daily range): BP systolic 124–129; BP diastolic 87–93; PULSE 53–123; RESP 18–20; TEMP 36.4–36.6; O2SAT 95–99
[2023-07-19 05:04] LABS: Hematocrit 40.4 % (42.0-52.0); Hemoglobin 13.8 g/dL (14.0-18.0); Mean Corpuscular HGB Conc 34.2 g/dl (32-36); Mean Corpuscular Hemoglobin 29.7 pg (26-34); Mean Corpuscular Volume 87.1 fl (80-100); Mean Platelet Volume 10.8 fl (7.4-10.4); Platelet Count Result 266 k/mm3 (150-375); Red Blood Count 4.64 M/mm3 (4.6-6.20); Red Cell Distribution Width 14.2 % (11.5-14.5); White Blood Count 5.9 K/mm3 (4.5-10.0)
[2023-07-19 06:05] LABS: Alanine Aminotransferase 48 U/L (6-50); Albumin Level 3.7 g/dL (3.5-5.1); Alkaline Phosphatase 69 U/L (38-126); Anion Gap 10 mmol/L (8-16); Aspartate Amino Transferase 40 U/L (17-59); Bilirubin,Total 0.7 mg/dL (0.2-1.3); Blood Urea Nitrogen 12 mg/dL (9-20); Calcium 8.3 mg/dL (8.4-10.2); Carbon Dioxide 22 mmol/L (22-30); Chloride 103 mmol/L (98-107); Estimated CRCL calculation 83 ml/min; Estimated Glomerular Filt Rate > 60; Glucose 100 mg/dL (65-110); Potassium 3.9 mmol/L (3.4-5.0); Sodium 135 mmol/L (137-145)
--- NOTE | 2023-07-19 07:44 | PM.PNCARD ---
Progress Note: A&P Assessment and Plan (1) Atrial fibrillation with rapid ventricular response: Code(s): I48.91 - Unspecified atrial fibrillation Status: Acute Assessment and Plan: Recurrence. [id number] 2 (hypertension, CHF). On aspirin. Rate control with Diltiazem drip. Started 07/15/23 Sotalol 80 mg PO every 12 hours. Heparin drip started in ED. Discuss that he could benefit from anticoagulation now with CHADSVasc 2 vs aspirin. Stop Diltiazem. Stop Sotalol as he has not cardioverted on it, and it appears he has more persistent atrial fibrillation, and would like him anticoagulated for 3-4 weeks prior to consideration for DC cardioversion. Start 07/18/23 Digoxin 125 mcg PO BID for rate control and Coreg 25 mg BID. Stopped aspirin as his stress test is negative. Started 07/18/23 Eliquis 5 mg PO BID for anticoagulation. May d/c home from cardiology standpoint and f/u with me in 1 week. (2) Acute exacerbation of CHF (congestive heart failure): Qualifiers: Heart failure type: unspecified Qualified Code(s): I50.9 - Heart failure, unspecified Code(s): I50.9 - Heart failure, unspecified Status: Acute Assessment and Plan: Acute systolic and diastolic heart failure. Differential includes alcoholic cardiomyopathy, tachycardia-induced CM, CAD. 07/16/23 Echo: EF 25-30%, mod LVE, diastolic dysfunction (E/e' 16), mild RVE, mild RV dysfunction, mod LAE, severe KIKI, mild-mod MR, mod TR. 07/17/23 Lexiscan myoview stress test is negative. Entresto, Jardiance, Spironolactone. Start Coreg. Change Lasix 40 mg PO BID and on Spironolactone 25 mg daily. Monitor electrolytes. Discuss Life vest to prevent sudden cardiac arrest and he is interested. Ordered already awaiting placement. (3) Abdominal pain: Qualifiers: Abdominal location: right lower quadrant Qualified Code(s): R10.31 - Right lower quadrant pain Code(s): R10.9 - Unspecified abdominal pain Status: Acute Assessment and Plan: Related to volume overload based on CT findings. (4) Tobacco abuse: Code(s): Z72.0 - Tobacco use Status: Acute Assessment and Plan: Counseled regarding smoking cessation and alcohol cessation (he drinks 30 pack beer a week). Subjective Date/time seen: 07/19/23 07:44 Interval history: Denies chest pain or sob or abdominal pain. Exam Const: General: cooperative, healthy appearing and comfortable Orientation/consciousness: oriented to person, oriented to place and oriented to time Resp: Auscultation: clear to auscultation bilaterally, no crackles, no rales, no rhonchi and no wheezes Cardio: Rate: regular rate Rhythm: abnormal rhythm Heart sounds: no murmurs Peripheral pulses: dorsalis pedis present Neuro: General: oriented to person, oriented to place and oriented to time Extrem: Right lower extremity: no edema Left lower extremity: no edema Objective Data Vital Signs Vital Signs: Vital Signs - 24 hr 07/18/23 08:00 07/18/23 08:00 07/18/23 08:00 Temperature 97.1 F L Pulse Rate 87 126 H Respiratory Rate 22 H Blood Pressure 135/88 Pulse Oximetry 95 Oxygen Delivery Room Air 07/18/23 10:00 07/18/23 12:00 07/18/23 12:00 Temperature 97.5 F L Pulse Rate 112 H 60 116 H Respiratory Rate 18 Blood Pressure 151/88 H Pulse Oximetry 99 Oxygen Delivery 07/18/23 14:00 07/18/23 12:00 07/18/23 16:00 Temperature 97.5 F L Pulse Rate 88 48 L Respiratory Rate 20 Blood Pressure 127/97 H Pulse Oximetry 97 Oxygen Delivery Room Air 07/18/23 16:00 07/18/23 16:00 07/18/23 18:00 Temperature Pulse Rate 90 97 Respiratory Rate Blood Pressure Pulse Oximetry Oxygen Delivery Room Air 07/18/23 19:43 07/18/23 20:39 07/18/23 20:00 Temperature 97.4 F L Pulse Rate 101 H 99 91 Respiratory Rate 20 Blood Pressure 146/76 H Pulse Oximetry 96 Oxygen Delivery 07/18/23 22:00 07/18/23
[2023-07-19] MEDS: SACUBITRIL/VALSARTAN 49-51 MG TABLET 1 TABLET PO (08:11)
[2023-07-19] MEDS: PANTOPRAZOLE 40 MG TABLET PO (08:11)
[2023-07-19] MEDS: DIGOXIN TAB 125 MCG TABLET PO (08:11)
[2023-07-19] MEDS: APIXABAN 5 MG TABLET PO (08:11)
[2023-07-19] MEDS: carvediloL 25 MG TABLET PO (08:11)
[2023-07-19] MEDS: EMPAGLIFLOZIN 10 MG TABLET PO (08:11)
[2023-07-19] MEDS: SPIRONOLACTONE 25 MG TABLET PO (08:11)
[2023-07-19] MEDS: FUROSEMIDE 40 MG TABLET PO (08:12)
--- NOTE | 2023-07-19 10:32 | PM.DS ---
DS: Admitting Diagnosis Discharge Date 07/19/23 Admitting Diagnosis SOB, abdominal pain DS: Discharge Diagnosis Discharge Diagnosis (1) Atrial fibrillation with rapid ventricular response: Code(s): I48.91 - Unspecified atrial fibrillation Status: Acute Assessment and Plan: Recurrent atrial fibrillation, self discontinued metoprolol and aspirin previously. Cardiology following and cleared for d/c today [id number] 2 - continue Entresto, Jardiance and spironolactone echo showed 25-30% EF, stress tests negative d/c ASA Continue Digoxin 125 mcg PO BID for rate control and Coreg 25 mg BID. Eliquis 5 mg PO BID for anticoagulation. Will be d/c with Life Vest Lasix 40 mg PO BID (2) Shortness of breath: Code(s): R06.02 - Shortness of breath Status: Acute Assessment and Plan: CT abd/pelvis showed likely congestive heart failure with cardiomegaly, mild pulmonary edema at the lung bases and small bilateral pleural effusions. Small amount of perihepatic and pericholecystic ascites which is nonspecific but which could also be related to congestive heart failure. Fluid scattered throughout the colon consistent with nonspecific diarrhea. CXR showed mild pulmonary edema with minimal left pleural effusion. Patient current smoker, interested in cessation. Shortness of breath likely secondary to volume overload; improved with Lasix Trop negative x2. (3) Abdominal pain: Qualifiers: Abdominal location: right lower quadrant Qualified Code(s): R10.31 - Right lower quadrant pain Code(s): R10.9 - Unspecified abdominal pain Status: Acute Assessment and Plan: AST/ALT returned to normal range this am hx of daily ETOH use. on PPI. patient plans to never smoke or drink alcohol again (4) Tobacco abuse: Code(s): Z72.0 - Tobacco use Status: Acute Assessment and Plan: ready for cessation. nicotine patches in interim. DS: Summary Hospital Course Hospital Course: Patient is 57 YO M admitted with SOB and abdominal pain with PMH of AFib, tobacco use, dyslipidemia, and HTN. Patient reported that he has been experiencing abdominal pain the last 30 days and shortness of breath for almost a weke prior to admission. Reported alcohol use 3 times per week, approximately 8 beers each session. Shortness of breath was not associated with any fever, chills, chest pain, or rhinorrhea. ED workup revealed recurrent AFib with RVR and imaging consistent with volume overload. Patient reports he had been previously diagnosed with AFib been placed on metoprolol and aspirin. Reports he has medications made him feel goofy , tired , and just felt bad so he self-discontinued these medications. Cardiology consulted and following throughout admission. Heparin drip stopped and transitioned to PO Eliquis, Coreg, digoxin, Jardiance, Lasix, Entresto. Patient EF on ECHO was only 25-30%, but stress test negative. Will be sent home with Life Vest and to follow up with cardiology in one week. He will have cardiac rehab outpatient as well. Patient is stable for d/c home today with close monitoring. Emphasized smoking and drinking cessation. Discussed continuing all prescribed medications. Status at Discharge Functional status at discharge: independent ambulation Overall status at discharge: patient is back to baseline Time Spent with Patient Time attestation: Total time spent providing and/or coordinating discharge services: Exam Const: General: comfortable and no acute distress HENMT: Face/Nose/Sinus: Normal nares present Mouth: Yes moist mucous membranes Eyes: General: appearance normal, both eyes and all related structures Pupils: Equal, round and reactive pupils present EOM: EOMs intact bilaterally Neck: Neck: supple Resp: Effort & Inspection: normal respiratory effort Auscultation: clear to auscultation bilaterally Cardio: Rhythm: abno
== END 2023-07-19 11:42 | disposition home or self-care (01) | DRG 201 ==
LOC: ANHED 17:00 → ANHIMU 17:56
PROVIDERS: Internal Medicine; Student in an Organized Health Care Education/Training Program; Admitting Provider Student in an Organized Health Care Education/Training Program; Emergency Provider Emergency Medicine; Visit Provider Nurse Practitioner
DX: I48.19 Other persistent atrial fibrillation (principal); I50.43 Acute on chronic combined systolic (congestive) and diastolic (congestive) heart failure; I11.0 Hypertensive heart disease with heart failure; E78.5 Hyperlipidemia, unspecified; F17.210 Nicotine dependence, cigarettes, uncomplicated; Z20.822 Contact with and (suspected) exposure to COVID-19; Z79.82 Long term (current) use of aspirin
CPT/HCPCS: 36415; 71045; 74177; 78452; 80048; 80053; 80076; 80307; 81001; 83605; 83735; 84484; 85025; 85027; 85610; 85730; 87637; 93005; 93017; 93306; 94762; 96361; 96374; 96375; 99285; A9270; A9502; J1644; J1940; J2270; J2405; J2785; J7030; Q9967

== ENCOUNTER 2023-07-21 08:28 | Inpatient (IN) | payer MEDICAID, SELFPAY ==
[2023-07-21] VITALS (67 sets, daily range): BP systolic 113–157; BP diastolic 67–124; PULSE 76–124; RESP 12–36; TEMP 36.5–36.9; O2SAT 91–100; BMI 23.3
--- NOTE | ~2023-07-21 | CT_ITS ---
EXAMINATION: CTA chest abdomen DATE: 07/21/2023 14:54 INDICATION: Left renal artery vein thrombosis TECHNIQUE: Computed tomographic angiography (CTA) of the chest and abdomen was performed without and with 100 mL Omnipaque-350 intravenous contrast. The dose-length product was 481.81 mGy-cm. Maximum in tensity projection 3D-reconstructions of the aorta and other arteries were constructed by the [employer] sun on a separate workstation. COMPARISON: CT dated 07/21/2023. FINDINGS: CHEST CTA: There is dependent atelectasis. No endobronchial lesions. No significant pleural or pericardial effus ion. There is a fusiform ascending thoracic aortic aneurysm measuring 4.5 cm. No evidence for dissect ion. There is mild mediastinal lymphadenopathy, likely reactive. Cardiomegaly. No significant pleural or pericardial effusion. There is dependent atelectasis. ABDOMEN CTA: There is a 1.5 cm aneurysm of the celiac axis which is partially thrombosed. The SMA is widely patent . There is thrombosis of the distal aspect of the left renal artery. There is a large area of infarct ion of the left renal artery with geographic appearance. The liver, spleen, pancreas, right kidney ar e unremarkable. There is thickening of the adrenal glands bilaterally, likely adrenal hyperplasia. No nobstructive bowel gas pattern. The CLEMENCIA is patent. No evidence for abdominal aortic aneurysm. Gallbla dder contains high density material, likely vicarious excretion of contrast. No lymphadenopathy. No f ree air or free fluid. IMPRESSION: 1. 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 2: Atherosclerosis with fusiform ascending thoracic aortic aneurysm measuring 4.5 cm. 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 4: Bilateral adrenal gland hyperplasia. Reviewed, dictated and finalized at [facility]. [employer] IMPRESSION: 1. 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 2: Atherosclerosis with fusiform ascending thoracic aortic aneurysm measuring 4 .5 cm. 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 4: Bilateral adrenal gland hyperplasia.
--- NOTE | ~2023-07-21 | CT_ITS ---
EXAMINATION: CT abdomen pelvis w con DATE: 07/21/2023 09:17 INDICATION: Left-sided abdominal pain TECHNIQUE: Computed tomography (CT) of the abdomen and pelvis was performed with 100 CC Omnipaque 350 intravenous contrast. Automated exposure control and iterative reconstruction technique were employe d. Exam dose: 566.07 mGy-cm total exam DLP. COMPARISON: 07/15/2023 CT abdomen pelvis FINDINGS: Mild discoid atelectasis or scarring in both lower lobes. Cardiomegaly. No pericardial or pleural effusion. Resolution of mild bilateral pleural effusions sinc e 07/15/2023. The liver, gallbladder, bile ducts, spleen, pancreas and pancreatic duct are unremarkable. Nonspecific mild bilateral adrenal prominence. No right renal mass lesion right urinary tract calculus or hydroureteronephrosis. There is extensive nonenhancement of particularly the mid and lower aspect of the left kidney, a new finding since 07/15/2023, suggesting extensive left renal infarct, less likely acute pyelonephritis. There is prominent calcification at the origins of the renal artery, greater on the left. Prostate enlargement and calcifications. Minimal free fluid in the dependent pelvis. Multiple small bowel air fluid levels, no obstruction or free air. There is atherosclerotic calcification of the abdominal aorta but no aneurysm. No intraperitoneal or retroperitoneal or pelvic mass lesion or lymphadenopathy. IMPRESSION: Extensive left renal infarct since 07/15/2023; less likely would be an acute pyelonephri tis Resolution of bilateral pleural effusions since 07/15/2023 Reviewed, dictated and finalized at [facility]. Reviewed, dictated and finalized at location [facility]. [employer] IMPRESSION: Extensive left renal infarct since 07/15/2023; less likely would b e an acute pyelonephritis Resolution of bilateral pleural effusions since 07/15/2023
--- NOTE | 2023-07-21 08:36 | ED.ABDPAIN ---
HPI - Abdominal Pain General Chief Complaint: Abdominal Pain Stated Complaint: abd pain Time Seen by Provider: 07/21/23 08:35 Source: patient and EMS Mode of arrival: EMS Limitations: no limitations History of Present Illness HPI narrative: 58 YEARS OLD WHITE MALE CAME TO THE EMERGENCY ROOM BY AMBULANCE FROM HOME COMPLAINING OF SUDDEN ONSET OF LEFT LOWER QUADRANT PAIN STARTED 1-2 HOURS PRIOR TO ARRIVAL. PATIENT DENIES ANY NAUSEA, VOMITING, DIARRHEA, FEVER, CHILLS OR RADIATION OF PAIN. HISTORY OF CONGESTIVE HEART FAILURE, ATRIAL FIBRILLATION Related Data Allergies Allergy/AdvReac Type Severity Reaction Status Date / Time No Known Allergies Allergy Mild Verified 07/15/23 13:22 Review of Systems Review of Systems: All systems reviewed & are unremarkable except as noted in HPI and below PMFSH Past Medical History Medical History Atrial fibrillation with rapid ventricular response Dyslipidemia HTN (hypertension) Tobacco abuse Family History Family History Mother Breast cancer Social History Social History Smoking packs per day: 1 Smoking cigarettes per day: 20.0 Years smoked: 30 Smoking pack-years: 30.00 Smoking status: Current every day smoker Tobacco type: cigarettes Smoking end date: 07/15/23 Alcohol intake: current Drinks per week: 30 Substance use: never Do You Feel Safe in your Home?: Yes Lack of Transportation: No Lack of Food: Never True Current Housing: I Have Housing Concerned About Future Housing: No Difficulty Paying Gas/Electric Bills: No Difficulty Paying for Meds: No Currently Unemployed: No Education: High School Diploma/GED Difficulty w/ Childcare or Family Care: No Gender identity (if verbalized by the patient): Male Spiritual care concerns: No Exam Narrative: GENERAL APPEARANCE: WELL-DEVELOPED, WELL-NOURISHED, RESTLESS, IN PAIN SKIN: NORMAL COLOR HEAD: NORMOCEPHALIC, NONTRAUMATIC EYES: CLEAR CONJUNCTIVA ENT: OROPHARYNX NORMAL, EARS NORMAL, NOSE NORMAL NECK: SUPPLE, NONTENDER CHEST AND RESPIRATORY: AIRWAY PATENT, NO RESPIRATORY DISTRESS, NO ACCESSORY MUSCLE USE HEART: REGULAR RATE/RHYTHM ABDOMEN: DIFFUSE GUARDING OF THE LEFT LOWER QUADRANT, NO REBOUND, QUITE BOWEL SOUNDS VASCULAR: NORMAL PERIPHERAL PULSES, NORMAL CAPILLARY REFILL. MUSCULOSKELETAL: NORMAL RANGE OF MOTION, NONTENDER BACK NEUROLOGIC: ALERT AND ORIENTED ?3, STRAW HAT BRIM RAISER OPERATOR IS NORMAL TESTED, NO GROSS MOTOR DEFICIT Course Consultations Consultation #1: DR. DEMPSEY TRANSFERRED TO [facility]TING Date: 07/21/23 Consultation #2: DR. HORNER, INTERVENTIONAL RADIOLOGIST AT [facility] NO INTERVENTION AT THIS TIME Date: 07/21/23 Consultation #3: DR DOVE, VASCULAR SURGEON AT [facility] REPORTED THAT PATIENT IS OUT OF WINDOW WHICH IS 1 AND HAVE TO MAXIMUM 2 HOURS. NO SURGICAL INTERVENTION AT THIS TIME. HE WAS ABLE TO LOOK AT THE CT SCAN IMAGES AND TOLD ME THAT THE LEFT RENAL ARTERY IS WIDE OPEN AND NOTHING CAN BE DONE AT THIS TIME. Date: 07/21/23 Additional Consultation(s): DR DOVE, VASCULAR SURGEON AT [facility] AFTER READING THE IMAGES OF THE CTA THORACIC AND ABDOMEN, IS TELLING ME THAT THE LEFT RENAL ARTERY IS WIDE OPEN, NO THROMBOSIS IN IT. DR. HUITRON OUR RADIOLOGIST IS TELLING ME THAT THE THROMBOSIS AT THE DISTAL RENAL ARTERY NOT AT THE PROXIMAL. DR. DOVE RECOMMENDS HEPARIN DRIP, UROLOGY AND HEMATOLOGY CONSULT TO PREVENT FURTHER THROMBOEMBOLISM. THE PATIENT CAN BE ADMITTED FOR PAIN CONTROL AND ANTICOAGULATION. DR. MOLINA, OUR
[2023-07-21 08:46] LABS: Basophils Absolute Auto 0.1 K/mm3 (0.0-0.1); Eosinophils Absolute Auto 0.2 K/mm3 (0-0.3); Hematocrit 44.7 % (42.0-52.0); Hemoglobin 14.8 g/dL (14.0-18.0); Immature Granulocyte Absolute 0.02 K/mm3 (0.00-0.031); Immature Granulocyte Percent A 0.3 % (0-0.5); Lymphocytes Absolute Auto 1.36 K/mm3 (0.9-3.2); Lymphocytes Percent Auto 22.6 % (18.3-44.2); Mean Corpuscular HGB Conc 33.1 g/dl (32-36); Mean Corpuscular Hemoglobin 29.2 pg (26-34); Mean Corpuscular Volume 88.3 fl (80-100); Mean Platelet Volume 10.3 fl (7.4-10.4); Monocytes Absolute Auto 0.6 K/mm3 (0.1-0.6); Monocytes Percent Auto 9.3 % (2.6-8.5); Neutrophils Absolute Auto 3.9 K/mm3 (1.3-6.7); Neutrophils Percent Auto 63.8 % (45.5-73.1); Platelet Count Result 312 k/mm3 (150-375); Red Blood Count 5.06 M/mm3 (4.6-6.20); Red Cell Distribution Width 14.5 % (11.5-14.5)
[2023-07-21] MEDS: ONDANSETRON INJ 4 MG/2 ML VIAL 8 MG IV PUSH (08:56)
[2023-07-21] MEDS: HYDROmorphone HCL INJ (*CRX) 1 MG/ML SYR 0.5 MG IV PUSH ×7 (08:56→23:12)
[2023-07-21] MEDS: SODIUM CHLORIDE 0.9% IV 1,000 ML 999 ML IV CONT (08:56)
[2023-07-21 09:00] LABS: Alanine Aminotransferase 36 U/L (6-50); Albumin Level 4.3 g/dL (3.5-5.1); Alkaline Phosphatase 80 U/L (38-126); Anion Gap 13 mmol/L (8-16); Aspartate Amino Transferase 27 U/L (17-59); Bilirubin,Total 0.7 mg/dL (0.2-1.3); Blood Urea Nitrogen 26 mg/dL (9-20); Calcium 9.3 mg/dL (8.4-10.2); Carbon Dioxide 22 mmol/L (22-30); Chloride 97 mmol/L (98-107); Estimated CRCL calculation 70 ml/min; Estimated Glomerular Filt Rate > 60; Glucose 123 mg/dL (65-110); Lipase 78 U/L (23-300); Potassium 4.2 mmol/L (3.4-5.0); Sodium 132 mmol/L (137-145)
[2023-07-21 10:08] LABS: Appearance Urine Clear (Clear); Bilirubin Urine Negative (Negative); Blood Urine Negative (Negative); Color Urine Yellow (Yellow); Glucose Urine UA 1+ mg/dL (Negative); Ketones Urine Negative (Negative); Leukocyte Esterase Ur Negative LEU/UL (Negative); Nitrate Urine Negative (Negative); Protein Urine Negative (Negative); Specific Grav Ur 1.006 (1.001-1.035); Urobilinogen Urine 0.2 mg/dL (<2.0); pH Urine 7.5 (5.0-9.0)
[2023-07-21 10:11] LABS: Add Urine Microscopic? NO
[2023-07-21 13:32] LABS: INR 1.1; Prothrombin Time 15.2 Seconds (11.1-14.7)
[2023-07-21 13:33] LABS: Partial Thromboplastin Time 30.1 SECONDS (22.3-36.8)
[2023-07-21] MEDS: HEPARIN SOD/D5W 100 UNITS/ML 25,000 UNITS/250 ML BAG 15 UNITS IV CONT (16:48)
[2023-07-21] MEDS: HEPARIN SODIUM 5,000 UNITS/ML VIAL 6500 UNITS IV PUSH (16:49)
[2023-07-21] MEDS: SODIUM CHLORIDE 0.9% IV 1,000 ML 125 ML IV CONT (17:12)
--- NOTE | 2023-07-21 17:31 | PC.NURSE ---
pt has an 18g IV in left forearm and right forearm. pt has heprin infusing in left forearm and iv fluids in right forearm
--- NOTE | 2023-07-21 17:40 | PM.IMHP ---
H&P: HPI History of Present Illness Date/Time: 07/21/23 18:00 Chief Complaint: Left abdominal pain. Narrative: This is a very pleasant 58-year-old male with combined systolic and diastolic congestive heart failure on LifeVest, hypertension, dyslipidemia, and atrial fibrillation on apixaban who presented to the emergency department via EMS from home for evaluation of left abdominal pain. The patient provides the following history. He is known to the hospitalist service from an admission just last week at which time he was admitted with atrial fibrillation with rapid ventricular response after presenting with shortness of breath and left-sided abdominal pain. Attempts at conversion with sotalol were unsuccessful and he is on carvedilol and digoxin for rate control. He was also started on apixaban 5 mg b.i.d. for stroke prophylaxis during that stay. Echo showed a severely reduced EF of 25 to 30%, diastolic dysfunction, biatrial enlargement, [id number] tricuspid regurgitation and mitral regurgitation. Lexiscan Myoview stress test was negative. He was discharged on 07/19/2023 with a LifeVest and prescriptions for carvedilol, furosemide, Jardiance, Entresto, digoxin, spironolactone, and pantoprazole. His pharmacy had difficulties getting the Entresto but he has been compliant with all other medications and he has been doing well. However he does report intermittent episodes of left-sided abdominal pain which has been ongoing for nearly 1 week. Today however the pain intensified markedly approximately 45 minutes prior to arrival to the ER. He has difficulties describing the pain but it seems to wax and wane in intensity. The pain is constant however an aching though at times it feels as sharp and stabbing. It is centered more along the left flank but does radiate in to the back and left mid to lower quadrant as well. He denies lightheadedness, dizziness, fever, chills, sweats, chest pain, pleuritic pain, shortness a breath, nausea, vomiting, diarrhea, dysuria, and hematuria. In the ED: He was afebrile on arrival. Blood pressures have been elevated in the 130s to 140s over low 100s diastolic. CBC was unremarkable. Chemistries were significant for sodium of 132, chloride 97, BUN 26, creatinine 1.20. Urine was positive for 1+ glucose. 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 The ED physician spoke with multiple specialist at [facility] and [facility] regarding the patient and his findings. Imaging was reviewed by the specialist and they report that the renal artery is widely patent and the small thrombosed area was in an inferior branch and not amenable to intervention. It was recommended that the patient be admitted to this hospital for pain control. As he was on Eliquis for several days prior to this occurrence, they recommend starting a heparin drip. Hematology and Urology have also been consulted. At the time my evaluation he is resting more comfortably after receiving IV pain medications. He denies personal history of blood clots but does report that his father of a venous thromboembolism. Review of Systems Review of Systems: Twelve systems were reviewed. The patient quit smoking and drinking since his recent hospitalization. He denies signs and symptoms of alcohol withdrawal. Except as documented, all other systems were reviewed and are negative. [facility] Past Medical History Medical History (Updated 07/21/23 @ 22:42 by Mai Cam PA-C) Atrial fibrillation Combined systolic and diastolic congestive heart failure Echo 07-16-23: EF 25-30%, sent home on LifeVest. Dyslipidemia Hypertension Surgical History Surgical History (Upd
--- NOTE | 2023-07-21 18:20 | PC.NURSE ---
This patient, Ramiro Esposito, was admitted to Medical Room 349-01. Patient/family oriented to hospital policies and general routines including ID bracelet, bed and alarms, visiting hours, pain management, procedures, bathroom and other care routines, personal items, smoking policy, room service/diet, and visiting hours. Information on how to activate the Rapid Response Team has been discussed. Patient/Family are encouraged to report perceived risks to care and to ask questions if they do not understand what they are told or what they should do.
[2023-07-21] MEDS: HYDROcodone/acetaminophen (*CRX) 5-325 MG TABLET 1 TAB PO (19:17)
[2023-07-21 20:26] LABS: INR 1.2; Prothrombin Time 15.4 Seconds (11.1-14.7)
[2023-07-21 20:29] LABS: Partial Thromboplastin Time 127.9 SECONDS (22.3-36.8)
[2023-07-21] MEDS: HEPARIN SOD/D5W 100 UNITS/ML 25,000 UNITS/250 ML BAG 13 UNITS IV CONT (21:33)
[2023-07-21] MEDS: oxyCODONE/ACETAMINOPHEN (*CRX) 5-325 MG TABLET 1 TABLET PO (23:44)
[2023-07-22] VITALS (13 sets, daily range): BP systolic 111–145; BP diastolic 75–95; PULSE 56–127; RESP 14–20; TEMP 36.2–36.7; O2SAT 96–99
[2023-07-22] MEDS: SODIUM CHLORIDE 0.9% IV 1,000 ML 125 ML IV CONT (00:45)
[2023-07-22] MEDS: HYDROcodone/acetaminophen (*CRX) 5-325 MG TABLET 1 TAB PO ×4 (01:12→17:42)
[2023-07-22 03:02] LABS: Basophils Absolute Auto 0.1 K/mm3 (0.0-0.1); Basophils Percent Auto 0.9 % (0.2-1.2); Eosinophils Absolute Auto 0.2 K/mm3 (0-0.3); Eosinophils Percent Auto 2.6 % (0-4.4); Hematocrit 43.3 % (42.0-52.0); Hemoglobin 14.1 g/dL (14.0-18.0); Immature Granulocyte Absolute 0.02 K/mm3 (0.00-0.031); Immature Granulocyte Percent A 0.3 % (0-0.5); Lymphocytes Absolute Auto 1.31 K/mm3 (0.9-3.2); Lymphocytes Percent Auto 17.2 % (18.3-44.2); Mean Corpuscular HGB Conc 32.6 g/dl (32-36); Mean Corpuscular Hemoglobin 29.4 pg (26-34); Mean Corpuscular Volume 90.2 fl (80-100); Mean Platelet Volume 10.3 fl (7.4-10.4); Monocytes Absolute Auto 0.9 K/mm3 (0.1-0.6); Monocytes Percent Auto 11.6 % (2.6-8.5); Neutrophils Absolute Auto 5.1 K/mm3 (1.3-6.7); Neutrophils Percent Auto 67.4 % (45.5-73.1); Platelet Count Result 261 k/mm3 (150-375); Red Cell Distribution Width 14.6 % (11.5-14.5); White Blood Count 7.6 K/mm3 (4.5-10.0)
[2023-07-22 03:13] LABS: Alanine Aminotransferase 70 U/L (6-50); Alkaline Phosphatase 84 U/L (38-126); Anion Gap 10 mmol/L (8-16); Aspartate Amino Transferase 107 U/L (17-59); Bilirubin,Total 0.7 mg/dL (0.2-1.3); Blood Urea Nitrogen 17 mg/dL (9-20); Calcium 8.9 mg/dL (8.4-10.2); Carbon Dioxide 21 mmol/L (22-30); Chloride 105 mmol/L (98-107); Estimated CRCL calculation 76 ml/min; Estimated Glomerular Filt Rate > 60; Glucose 96 mg/dL (65-110); Magnesium 2.6 mg/dL (1.6-2.3); Potassium 4.2 mmol/L (3.4-5.0); Sodium 136 mmol/L (137-145)
[2023-07-22 03:14] LABS: Partial Thromboplastin Time 69.5 SECONDS (22.3-36.8)
[2023-07-22] MEDS: oxyCODONE/ACETAMINOPHEN (*CRX) 5-325 MG TABLET 1 TABLET PO ×5 (03:34→23:41)
[2023-07-22] MEDS: HEPARIN SODIUM 5,000 UNITS/ML VIAL 3500 UNITS IV PUSH (03:35)
[2023-07-22] MEDS: HEPARIN SOD/D5W 100 UNITS/ML 25,000 UNITS/250 ML BAG 15 UNITS IV CONT (03:36)
[2023-07-22] MEDS: PANTOPRAZOLE 40 MG TABLET PO (08:35)
[2023-07-22] MEDS: EMPAGLIFLOZIN 10 MG TABLET PO (08:35)
[2023-07-22] MEDS: FUROSEMIDE 40 MG TABLET PO ×2 (08:35→17:41)
[2023-07-22] MEDS: DIGOXIN TAB 125 MCG TABLET PO ×2 (08:35→17:41)
[2023-07-22] MEDS: SPIRONOLACTONE 25 MG TABLET PO (08:35)
[2023-07-22] MEDS: SACUBITRIL/VALSARTAN 49-51 MG TABLET 1 TABLET PO ×2 (08:35→20:12)
[2023-07-22] MEDS: carvediloL 25 MG TABLET PO ×2 (08:36→20:12)
[2023-07-22] MEDS: SODIUM CHLORIDE 0.9% IV 1,000 ML 100 ML IV CONT ×2 (08:39→17:42)
[2023-07-22] MEDS: HYDROmorphone HCL INJ (*CRX) 1 MG/ML SYR 0.5 MG IV PUSH ×2 (10:15→16:23)
[2023-07-22 11:02] LABS: Digoxin 1.3 ng/mL (0.8-2.0)
--- NOTE | 2023-07-22 14:26 | PM.IMPN ---
Progress Note: A&P Assessment and Plan (1) Infarction of kidney: Code(s): N28.0 - Ischemia and infarction of kidney Status: Acute Assessment and Plan: Continue with IV heparin. Will consult urology and Cardiology for patient (2) Aneurysm of thoracic aorta: Code(s): I71.20 - Thoracic aortic aneurysm, without rupture, unspecified Status: Acute Assessment and Plan: Continue current treatment consult Cardiology. (3) Aneurysm of celiac artery: Code(s): I72.8 - Aneurysm of other specified arteries Status: Acute Assessment and Plan: Continue current treatment consult Cardiology. (4) Atrial fibrillation: Code(s): I48.91 - Unspecified atrial fibrillation Status: Acute Assessment and Plan: Stable on current medication, will continue current treatment. (5) Combined systolic and diastolic congestive heart failure: Code(s): I50.40 - Unspecified combined systolic (congestive) and diastolic (congestive) heart failure Status: Acute Assessment and Plan: Stable on current medication, will continue current treatment. (6) Hypertension: Code(s): I10 - Essential (primary) hypertension Status: Acute Assessment and Plan: Stable on current medication, will continue current treatment. Plan Patient is currently on IV heparin. Patient pain is under control. Patient is to continue current treatment and consult Cardiology and urology. Subjective Date/time seen: 07/22/23 14:26 Interval history: Patient was seen during the morning rounds today. Patient abdominal pain is under control. No shortness of breath or chest pain. No nausea or vomiting Review of Systems Review of Systems: Twelve systems were reviewed. The patient quit smoking and drinking since his recent hospitalization. He denies signs and symptoms of alcohol withdrawal. Except as documented, all other systems were reviewed and are negative. Exam Narrative: General: Well-developed, nontoxic-appearing gentleman in moderate pain. Weight: 82.7 kg. BMI: 23.4. HEENT: Normocephalic, atraumatic. PERRL, EOMI. Sclera anicteric. Oral mucosa moist. Oropharynx clear. Neck: Supple. Full shields. No JVD. Respiratory: Lungs are clear to auscultation bilaterally. Cardiovascular: Irregularly irregular rate and rhythm. Soft murmur at the left sternal border. Gastrointestinal: Abdomen is soft and nondistended with positive bowel sounds. Mild tenderness to palpation over the left flank and left mid to lower quadrant. Positive guarding but no rebound tenderness. Skin: Warm and dry. Extremities: No cyanosis, clubbing, or edema. Radial and pedal pulses intact. Neurological: Alert. Cranial nerves 2-12 are grossly intact. No gross focal deficits to casual conversation. Psychiatric: Pleasant and cooperative with normal mood and affect. Judgment and insight intact. Objective Data Vital Signs Vital Signs: Vital Signs - 24 hr 07/21/23 14:30 07/21/23 14:55 07/21/23 15:07 Temperature Pulse Rate 85 103 H Respiratory Rate 12 Blood Pressure 139/99 H Pulse Oximetry 99 Oxygen Delivery 07/21/23 16:24 07/21/23 14:57 07/21/23 15:00 Temperature Pulse Rate 90 100 106 H Respiratory Rate 14 18 20 Blood Pressure Pulse Oximetry 97 99 98 Oxygen Delivery 07/21/23 15:27 07/21/23 15:34 07/21/23 15:46 Temperature Pulse Rate 76 114 H 93 Respiratory Rate 15 19 Blood Pressure 145/94 H Pulse Oximetry 92 93 95 Oxygen Delivery 07/21/23 16:02 07/21/23 16:15 07/21/23 16:16 Temperature Pulse Rate 95 99 98 Respiratory Rate 20 22 H 23 H Blood Pressure 124/99 H Pulse Oximetry 91 98 100 Oxygen Delivery 07/21/23 16:17 07/21/23 16:42 07/21/23 16:45 Temperature Pulse Rate 117 H 76 103 H Respiratory Rate 22 H 18 20 Blood Pressure Pulse Oximetry 97 95 Oxygen Delivery 07/21/23 16:48 07/21/23 17:00 07/21/23 17:02 Tem
--- NOTE | 2023-07-22 14:58 | PM.IMHP ---
H&P: HPI History of Present Illness Date/Time: 07/22/23 14:58 Chief Complaint: Left renal infarction Narrative: Ramiro is a pleasant 50-year-old male was admitted through the emergency room with a left renal infarction. He presented with acute onset of left lower quadrant pain. Denied any fevers or gross hematuria or voiding symptoms. CT scan revealed a thrombus in the distal end of the inferior segmental branch of the left renal artery. Vascular was consulted from [facility] and [place]. It was not amenable to surgical intervention. He was admitted for IV heparin. Patient had been on Eliquis prior to this occurrence. Etiology is unclear at this time. Patient is resting comfortably at this time but does have intermittent pain more noticeable in the left lower quadrant. Review of Systems Review of Systems: All systems reviewed & are unremarkable except as noted in HPI and below PMFSH Past Medical History Medical History Atrial fibrillation Combined systolic and diastolic congestive heart failure Echo 07-16-23: EF 25-30%, sent home on LifeVest. Dyslipidemia Hypertension Surgical History Surgical History No history of previous surgery Family History Family History Mother Breast cancer Social History Social History Social History: Surrogate medical decision maker: Escobar Esposito, son. Code status: Full code. Smoking packs per day: 1 Smoking cigarettes per day: 20.0 Years smoked: 30 Smoking pack-years: 30.00 Smoking status: Former smoker Alcohol intake: former Drinks per week: 30 Alcohol use details: No alcohol since 07/15/2023. Substance use: never Substance use type: does not use Do You Feel Safe in your Home?: Yes Lack of Transportation: No Lack of Food: Never True Current Housing: I Have Housing Concerned About Future Housing: No Difficulty Paying Gas/Electric Bills: No Difficulty Paying for Meds: No Currently Unemployed: No Education: High School Diploma/GED Difficulty w/ Childcare or Family Care: No Additional living arrangements comments: Lives in [place]. 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 Spiritual care concerns: No Meds Home Medications and Allergies Home Medications Medication Instructions Recorded Confirmed Type apixaban 5 mg tablet (Eliquis) 5 mg PO Q12HR #60 tabs 07/19/23 07/21/23 Rx carvedilol 25 mg tablet (Coreg) 25 mg PO Q12HR #60 tabs 07/19/23 07/21/23 Rx digoxin 125 mcg (0.125 mg) tablet 125 mcg PO BID #60 tabs 07/19/23 07/21/23 Rx empagliflozin 10 mg tablet 10 mg PO DAILY #30 tabs 07/19/23 07/21/23 Rx (Jardiance) furosemide 40 mg tablet 40 mg PO BID #60 tabs 07/19/23 07/21/23 Rx pantoprazole 40 mg tablet,delayed 40 mg PO QAM #30 tabs 07/19/23 07/21/23 Rx release sacubitril 49 mg-valsartan 51 mg 1 tablet PO Q12HR #60 tabs 07/19/23 07/21/23 Rx tablet (Entresto) spironolactone 25 mg tablet 25 mg PO QAM #30 tabs 07/19/23 07/21/23 Rx Allergies Allergy/AdvReac Type Severity Reaction Status Date / Time No Known Allergies Allergy Mild Verified 07/15/23 13:22 Vital Signs Vital Signs - 24 hr 07/21/23 15:07 07/21/23 16:24 07/21/23 15:00 Temperature Pulse Rate 90 106 H Respiratory Rate 14 20 Blood Pressure 139/99 H Pulse Oximetry 97 98 Oxygen Delivery 07/21/23 15:27 07/21/23 15:34 07/21/23 15:46 Temperature Pulse Rate 76 114 H 93 Respiratory Rate 15 19 Blood Pressure 145/94 H Pulse Oximetry 92 93 95 Oxygen Delivery 07/21/23 16:02 07/21/23 16:15 07/21/23 16:16 Temperature Pulse Rate 95 99 98 Respiratory Rate 20 22 H 23 H Blood Pressure 124/99 H Pulse Oximetry 91 98 100 Oxygen Delivery
[2023-07-22 16:32] LABS: Partial Thromboplastin Time > 200.0 SECONDS (22.3-36.8)
--- NOTE | 2023-07-22 16:54 | PM.CNCAR ---
Assessment and Plan Assessment and plan (1) Infarction of kidney: Code(s): N28.0 - Ischemia and infarction of kidney Status: Acute Assessment and Plan: CTA shows thrombosis of the left renal artery at the inferior segmental branch. ER had discussed patient's case with both IR and Vascular Surgery who recommended no surgical intervention at this time. Vascular Surgery had recommended Heparin drip, Urology and Hematology consultations. At recent hospitalization, patient was on Heparin drip and then transitioned to Eliquis for his atrial fibrillation on 07/18. Patient reports full compliance with his medications since discharge. Urology consulted - no urologic intervention needed. Patient does have atrial fibrillation, which can cause systemic thromboembolism. Will obtain LISSETH to rule out intracardiac source of thrombus. Will plan for LISSETH 07/23 at noon with Anesthesia team. Patient to be NPO after midnight. Agree that patient may benefit from Hematology consultation. (2) Combined systolic and diastolic congestive heart failure: Code(s): I50.40 - Unspecified combined systolic (congestive) and diastolic (congestive) heart failure Status: Acute Assessment and Plan: Stable, continue home heart failure GDMT. (3) Atrial fibrillation: Code(s): I48.91 - Unspecified atrial fibrillation Status: Acute Assessment and Plan: Continue Coreg, Digoxin, anticoagulation (currently on Heparin drip). History of Present Illness History of Present Illness Consult date/time: 07/22/23 16:54 Requesting physician: Darci Espinal MD Consult reason: Other (Renal artery thrombosis) Reason For Visit: Left Renal Infarction,Afib,Coagulopathy Narrative: This is a 58 year old male for which we are consulted for renal artery thrombosis. Dr. Boone patient but Dr. Boone is off at this time. Patient was recently discharged on 07/19 after being admitted with congestive heart failure, atrial fibrillation with RVR. Was on Heparin drip and then transitioned to Eliquis for his atrial fibrillation on 07/18. Patient reports full compliance with his medications since discharge and has been tolerating them well. Patient started have left abdomen. CTA shows thrombosis of the left renal artery at the inferior segmental branch. ER had discussed patient's case with both IR and Vascular Surgery who recommended no surgical intervention at this time. Vascular Surgery had recommended Heparin drip, Urology and Hematology consultations. Review of Systems Review of Systems: All systems reviewed & are unremarkable except as noted in HPI and below (HPI) [facility] Past Medical History Medical History Atrial fibrillation Combined systolic and diastolic congestive heart failure Echo 07-16-23: EF 25-30%, sent home on LifeVest. Dyslipidemia Hypertension Surgical History Surgical History No history of previous surgery Family History Family History Mother Breast cancer Social History Social History Social History: Surrogate medical decision maker: Escobar Esposito, son. Code status: Full code. Smoking packs per day: 1 Smoking cigarettes per day: 20.0 Years smoked: 30 Smoking pack-years: 30.00 Smoking status: Former smoker Alcohol intake: former Drinks per week: 30 Alcohol use details: No alcohol since 07/15/2023. Substance use: never Substance use type: does not use Do You Feel Safe in your Home?: Yes Lack of Transportation: No Lack of Food: Never True Current Housing: I Have Housing Concerned About Future Housing: No Difficulty Paying Gas/Electric Bills: No Difficulty Paying for Meds: No Currently Unemployed: No Education: High School Diploma/GED Difficulty w/ Childcare or Family Care: No Addit
[2023-07-22 23:56] LABS: Partial Thromboplastin Time 64.6 SECONDS (22.3-36.8)
[2023-07-23] VITALS (16 sets, daily range): BP systolic 120–156; BP diastolic 87–102; PULSE 51–120; RESP 13–20; TEMP 36.3–36.8; O2SAT 96–100
[2023-07-23] MEDS: HEPARIN SODIUM 5,000 UNITS/ML VIAL 3500 UNITS IV PUSH (00:04)
[2023-07-23] MEDS: HEPARIN SOD/D5W 100 UNITS/ML 25,000 UNITS/250 ML BAG 15 UNITS IV CONT ×3 (00:04→06:32)
[2023-07-23] MEDS: SODIUM CHLORIDE 0.9% IV 1,000 ML 125 ML IV CONT ×3 (00:05→19:27)
[2023-07-23] MEDS: oxyCODONE/ACETAMINOPHEN (*CRX) 5-325 MG TABLET 1 TABLET PO ×3 (04:52→21:03)
[2023-07-23 06:07] LABS: Hematocrit 42.7 % (42.0-52.0); Hemoglobin 14.1 g/dL (14.0-18.0); Mean Corpuscular Hemoglobin 29.3 pg (26-34); Mean Corpuscular Volume 88.8 fl (80-100); Mean Platelet Volume 10.1 fl (7.4-10.4); Platelet Count Result 242 k/mm3 (150-375); Red Blood Count 4.81 M/mm3 (4.6-6.20); Red Cell Distribution Width 14.5 % (11.5-14.5); White Blood Count 11.8 K/mm3 (4.5-10.0)
[2023-07-23 06:19] LABS: Anion Gap 8 mmol/L (8-16); Blood Urea Nitrogen 10 mg/dL (9-20); Calcium 8.3 mg/dL (8.4-10.2); Carbon Dioxide 24 mmol/L (22-30); Chloride 102 mmol/L (98-107); Estimated CRCL calculation 70 ml/min; Estimated Glomerular Filt Rate > 60; Glucose 101 mg/dL (65-110); Potassium 3.9 mmol/L (3.4-5.0); Sodium 134 mmol/L (137-145)
[2023-07-23] MEDS: DIGOXIN TAB 125 MCG TABLET PO ×2 (08:29→17:27)
[2023-07-23] MEDS: SACUBITRIL/VALSARTAN 49-51 MG TABLET 1 TABLET PO ×2 (08:29→21:03)
[2023-07-23] MEDS: PANTOPRAZOLE 40 MG TABLET PO (08:30)
[2023-07-23] MEDS: carvediloL 25 MG TABLET PO ×2 (08:30→21:03)
[2023-07-23] MEDS: HYDROcodone/acetaminophen (*CRX) 5-325 MG TABLET 1 TAB PO ×2 (08:35→12:47)
--- NOTE | 2023-07-23 10:38 | PM.IMPN ---
Progress Note: A&P Assessment and Plan (1) Infarction of kidney: Code(s): N28.0 - Ischemia and infarction of kidney Status: Acute Assessment and Plan: Continue with IV heparin. Cardiology consult noted. LISSETH scheduled for today. (2) Aneurysm of thoracic aorta: Code(s): I71.20 - Thoracic aortic aneurysm, without rupture, unspecified Status: Acute Assessment and Plan: Continue current treatment consult Cardiology. (3) Aneurysm of celiac artery: Code(s): I72.8 - Aneurysm of other specified arteries Status: Acute Assessment and Plan: Continue current treatment consult Cardiology. (4) Atrial fibrillation: Code(s): I48.91 - Unspecified atrial fibrillation Status: Acute Assessment and Plan: Stable on current medication, will continue current treatment. (5) Combined systolic and diastolic congestive heart failure: Code(s): I50.40 - Unspecified combined systolic (congestive) and diastolic (congestive) heart failure Status: Acute Assessment and Plan: Stable on current medication, will continue current treatment. (6) Hypertension: Code(s): I10 - Essential (primary) hypertension Status: Acute Assessment and Plan: Stable on current medication, will continue current treatment. Plan Patient is currently on IV heparin. Patient pain is under control. Patient is to continue current treatment. Subjective Date/time seen: 07/23/23 10:38 Interval history: Patient was seen during the morning rounds today. No new overnight complaints. Patient abdominal pain is under control. No shortness of breath or chest pain. No nausea or vomiting Review of Systems Review of Systems: Twelve systems were reviewed. The patient quit smoking and drinking since his recent hospitalization. He denies signs and symptoms of alcohol withdrawal. Except as documented, all other systems were reviewed and are negative. Exam Narrative: General: Well-developed, nontoxic-appearing gentleman in moderate pain. Weight: 82.7 kg. BMI: 23.4. HEENT: Normocephalic, atraumatic. PERRL, EOMI. Sclera anicteric. Oral mucosa moist. Oropharynx clear. Neck: Supple. Full shields. No JVD. Respiratory: Lungs are clear to auscultation bilaterally. Cardiovascular: Irregularly irregular rate and rhythm. Soft murmur at the left sternal border. Gastrointestinal: Abdomen is soft and nondistended with positive bowel sounds. Mild tenderness to palpation over the left flank and left mid to lower quadrant. Positive guarding but no rebound tenderness. Skin: Warm and dry. Extremities: No cyanosis, clubbing, or edema. Radial and pedal pulses intact. Neurological: Alert. Cranial nerves 2-12 are grossly intact. No gross focal deficits to casual conversation. Psychiatric: Pleasant and cooperative with normal mood and affect. Judgment and insight intact. Objective Data Vital Signs Vital Signs: Vital Signs - 24 hr 07/22/23 12:00 07/22/23 15:15 07/22/23 16:00 Temperature 36.7 C Pulse Rate 83 95 97 Respiratory Rate 18 Blood Pressure 111/75 Pulse Oximetry 99 Oxygen Delivery 07/22/23 17:41 07/22/23 20:00 07/22/23 22:00 Temperature 36.2 C L Pulse Rate 94 89 56 L Respiratory Rate 20 Blood Pressure 125/83 Pulse Oximetry 98 Oxygen Delivery 07/23/23 00:00 07/23/23 04:00 07/23/23 06:00 Temperature 36.3 C L Pulse Rate 93 77 51 L Respiratory Rate 18 Blood Pressure 120/87 Pulse Oximetry 96 Oxygen Delivery 07/23/23 08:29 07/23/23 08:30 07/23/23 08:39 Temperature Pulse Rate 84 84 Respiratory Rate Blood Pressure Pulse Oximetry Oxygen Delivery Room Air Intake/Output Intake/Output: Intake & Output 07/20/23 07/21/23 07/22/23 07/23/23 23:59 23:59 23:59 23:59 Intake Total 2750 5080 3000 Output Total 2625 2455 3025 Balance 125 1455 -25 Meds/Results Medications: Active Medications
--- NOTE | 2023-07-23 11:57 | PM.PNCARD ---
Progress Note: A&P Assessment and Plan (1) Infarction of kidney: Code(s): N28.0 - Ischemia and infarction of kidney Status: Acute Assessment and Plan: CTA shows thrombosis of the left renal artery at the inferior segmental branch. ER had discussed patient's case with both IR and Vascular Surgery who recommended no surgical intervention at this time. Vascular Surgery had recommended Heparin drip, Urology and Hematology consultations. At recent hospitalization, patient was on Heparin drip and then transitioned to Eliquis for his atrial fibrillation on 07/18. Patient reports full compliance with his medications since discharge. Urology consulted - no urologic intervention needed. Patient does have atrial fibrillation, which can cause systemic thromboembolism. Therefore, LISSETH recommended to evaluate for intracardiac source of thrombus. LISSETH shows left atrial appendage thrombus, which likely caused the systemic thromboembolism to his renal artery. Unclear for how long patient has been in atrial fibrillation -- on presentation to hospital last week, he was already in atrial fibrillation. I suspect that the left atrial appendage thrombus was probably already there last week. He has only been on anticoagulation for about a week now, therefore, I do not think this is anticoagulation failure. Therefore, would continue patient on Eliquis 5mg BID. Recommend to repeat LISSETH in 4 weeks as an outpatient to assess for resolution of thrombus. Will need close outpatient follow up with Dr. Boone. (2) Thrombus of left atrial appendage: Code(s): I51.3 - Intracardiac thrombosis, not elsewhere classified Status: Acute Assessment and Plan: LISSETH shows left atrial appendage thrombus, which likely caused the systemic thromboembolism to his renal artery. Unclear for how long patient has been in atrial fibrillation -- on presentation to hospital last week, he was already in atrial fibrillation. I suspect that the left atrial appendage thrombus was probably already there last week. He has only been on anticoagulation for about a week now, therefore, I do not think this is anticoagulation failure. Therefore, would continue patient on Eliquis 5mg BID. Recommend to repeat LISSETH in 4 weeks as an outpatient to assess for resolution of thrombus. Will need close outpatient follow up with Dr. Boone. (3) Combined systolic and diastolic congestive heart failure: Code(s): I50.40 - Unspecified combined systolic (congestive) and diastolic (congestive) heart failure Status: Acute Assessment and Plan: Stable, continue home heart failure GDMT. (4) Atrial fibrillation: Code(s): I48.91 - Unspecified atrial fibrillation Status: Acute Assessment and Plan: Continue Coreg, Digoxin, anticoagulation (currently on Heparin drip; switch back to Eliquis prior to discharge). Plan Recommendations and plan discussed with Hospitalist. Subjective Date/time seen: 07/23/23 11:57 Interval history: Reason for visit: Renal artery thrombosis HPI: This is a 58 year old male for which we are consulted for renal artery thrombosis. Dr. Boone patient but Dr. Boone is off at this time. Patient was recently discharged on 07/19 after being admitted with congestive heart failure, atrial fibrillation with RVR. Was on Heparin drip and then transitioned to Eliquis for his atrial fibrillation on 07/18. Patient reports full compliance with his medications since discharge and has been tolerating them well. Patient started have left abdomen. CTA shows thrombosis of the left renal artery at the inferior segmental branch. ER had discussed patient's case with both IR and Vascular Surgery who recommended no surgical intervention at this time. Vascular Surgery had recommended Heparin drip, Urology and Hematology consultations. Date of service 07/23: LISSETH today. Abdominal pain is improving. Review of Systems Review of Systems: Improving abdominal pain Exa
[2023-07-23] MEDS: SPIRONOLACTONE 25 MG TABLET PO (12:20)
[2023-07-23] MEDS: EMPAGLIFLOZIN 10 MG TABLET PO (12:20)
--- NOTE | 2023-07-23 12:39 | P.PCNTEE_ITS ---
LISSETH TransEsophageal Echocardiogram Date of procedure: 07/23/23 Procedure Type: Date of Procedure: 07/23/2023 Brief History Of Present Illness: Patient is referred for transesophageal echocardiogram to evaluate for intracardiac thrombus. Procedure In Detail: After verbal and written informed consent was obtained, the patient risks, benefits, and alternatives explained in detail. The patient agreed to proceed with the plan of care as outlined above.?The patient was evaluated at bedside in the Patient Care Secretary procedure room.?The posterior oropharynx, neck, and jaw angle all within normal limits on examination. Lungs were clear to auscultation. Sedation done by Anesthesia team. The patient was then placed in the appropriate 30 to 45 degree angle supine position at a slight left lateral decubitus position.?Patient was monitored throughout the study with telemetry, oxygen saturation, end-tidal CO2 monitoring, blood pressure, heart rate, and respirations.? The posterior hypopharynx was then locally anesthetized using repeated administration of Hurricaine spray as well as gargled viscous lidocaine.? Sedation administered by Anesthesia team.? After confirmation of adequate moderate sedation, the transesophageal echocardiogram probe was advanced through the oral bite block into the posterior hypopharynx and into the esophagus easily and without complication.? Multiple, multiplanar echocardiographic images were obtained in multiple standard re- projections.? Color-flow Doppler was utilized in conjunction with this study.? At the conclusion of the study, the transesophageal echocardiogram probe was removed easily and without complication.? The patient tolerated the procedure well without difficulty.? Moderate Sedation/Anesthesia administration: Sedation done by Anesthesia team. FINDINGS: LEFT VENTRICLE: Left ventricular size is mildly enlarged. Left ventricular systolic function appears to be at least moderately reduced. No thrombus in the left ventricle noted. RIGHT VENTRICLE:? Size appears to be within normal limits. LEFT ATRIUM: Appears to be normal size. RIGHT ATRIUM: Not well assessed. MITRAL VALVE: Mild mitral valve regurgitation. AORTIC VALVE: Trileaflet valve. Mild aortic regurgitation. TRICUSPID VALVE: Mild tricuspid regurgitation. PULMONIC VALVE: Pulmonic valve was not well visualized. No regurgitation identified. LEFT ATRIAL APPENDAGE: Large thrombus in the left atrial appendage. PERICARDIUM: Trivial posterior pericardial effusion. ? AORTA: Mild atherosclerotic disease. Complications: None
[2023-07-23 12:47] LABS: Partial Thromboplastin Time 72.7 SECONDS (22.3-36.8)
[2023-07-23] MEDS: polyethylene glycoL 3350 17 GM POWD.PACK PO (12:47)
[2023-07-23] MEDS: FUROSEMIDE 40 MG TABLET PO (17:27)
[2023-07-24] VITALS: PULSE 97
[2023-07-24] MEDS: HEPARIN SOD/D5W 100 UNITS/ML 25,000 UNITS/250 ML BAG 15 UNITS IV CONT (00:07)
[2023-07-24] MEDS: oxyCODONE/ACETAMINOPHEN (*CRX) 5-325 MG TABLET 1 TABLET PO (01:54)
[2023-07-24 04:00] VITALS: PULSE 85
[2023-07-24 06:00] VITALS: BP 132/93; PULSE 102; RESP 20; TEMP 36.1; O2SAT 98
[2023-07-24] MEDS: HEPARIN SODIUM 5,000 UNITS/ML VIAL 3500 UNITS IV PUSH (06:15)
[2023-07-24] MEDS: HEPARIN SOD/D5W 100 UNITS/ML 25,000 UNITS/250 ML BAG 17 UNITS IV CONT (06:16)
[2023-07-24 08:00] VITALS: PULSE 83
[2023-07-24] MEDS: APIXABAN 5 MG TABLET PO (08:52)
[2023-07-24 08:53] VITALS: PULSE 94
[2023-07-24] MEDS: carvediloL 25 MG TABLET PO (08:53)
[2023-07-24] MEDS: DIGOXIN TAB 125 MCG TABLET PO (08:53)
[2023-07-24] MEDS: EMPAGLIFLOZIN 10 MG TABLET PO (08:54)
[2023-07-24] MEDS: polyethylene glycoL 3350 17 GM POWD.PACK PO (08:54)
[2023-07-24] MEDS: FUROSEMIDE 40 MG TABLET PO (08:54)
[2023-07-24] MEDS: SPIRONOLACTONE 25 MG TABLET PO (08:54)
[2023-07-24] MEDS: PANTOPRAZOLE 40 MG TABLET PO (08:54)
[2023-07-24] MEDS: SACUBITRIL/VALSARTAN 49-51 MG TABLET 1 TABLET PO (08:54)
--- NOTE | 2023-07-24 09:38 | PM.DS ---
DS: Admitting Diagnosis Discharge Date 07/24/2023n Admitting Diagnosis Acute kidney infarction DS: Discharge Diagnosis Discharge Diagnosis (1) Infarction of kidney: Code(s): N28.0 - Ischemia and infarction of kidney Status: Acute Assessment and Plan: Continue with IV heparin. Cardiology consult noted. IGNACIO scheduled for today. (2) Aneurysm of thoracic aorta: Code(s): I71.20 - Thoracic aortic aneurysm, without rupture, unspecified Status: Acute Assessment and Plan: Continue current treatment consult Cardiology. (3) Aneurysm of celiac artery: Code(s): I72.8 - Aneurysm of other specified arteries Status: Acute Assessment and Plan: Continue current treatment consult Cardiology. (4) Atrial fibrillation: Code(s): I48.91 - Unspecified atrial fibrillation Status: Acute Assessment and Plan: Stable on current medication, will continue current treatment. (5) Combined systolic and diastolic congestive heart failure: Code(s): I50.40 - Unspecified combined systolic (congestive) and diastolic (congestive) heart failure Status: Acute Assessment and Plan: Stable on current medication, will continue current treatment. (6) Hypertension: Code(s): I10 - Essential (primary) hypertension Status: Acute Assessment and Plan: Stable on current medication, will continue current treatment. Plan Patient is currently on IV heparin. Patient pain is under control. Patient is to continue current treatment. DS: Summary Hospital Course Reason for hospitalization: Acute kidney infarction Hospital Course: 58 years old male with history of multiple medical problems admitted complained of any abdominal pain. CT scan showed that patient has kidney function. Ignacio was done that showed patient has thrombus the heart. Patient was given anticoagulation. And then converted to p.o. Eliquis. Patient did not have any complication during the stay in the hospital. Today patient is feeling better was discharged home stable condition. Follow-up with cardiology and primary care schedule. Time Spent with Patient Time attestation: Total time spent providing and/or coordinating discharge services: Exam Narrative: General: Well-developed, nontoxic-appearing gentleman in moderate pain. Weight: 82.7 kg. BMI: 23.4. HEENT: Normocephalic, atraumatic. PERRL, EOMI. Sclera anicteric. Oral mucosa moist. Oropharynx clear. Neck: Supple. Full shields. No JVD. Respiratory: Lungs are clear to auscultation bilaterally. Cardiovascular: Irregularly irregular rate and rhythm. Soft murmur at the left sternal border. Gastrointestinal: Abdomen is soft and nondistended with positive bowel sounds. Mild tenderness to palpation over the left flank and left mid to lower quadrant. Positive guarding but no rebound tenderness. Skin: Warm and dry. Extremities: No cyanosis, clubbing, or edema. Radial and pedal pulses intact. Neurological: Alert. Cranial nerves 2-12 are grossly intact. No gross focal deficits to casual conversation. Psychiatric: Pleasant and cooperative with normal mood and affect. Judgment and insight intact. DS: Data Data Completed and Pending Labs on day of discharge: Labs from last 24 hours 07/24/23 07/23/23 05:46 12:24 APTT 65.0 H 72.7 H Discharge Plan Discharge Attending physician on discharge: Darci Espinal Consulting providers: Nikko Anderson; [place] Gimenez Discharging Clinician: Darci Espinal Patient Disposition: Home, Self-Care Activity: as tolerated Diet: heart healthy Patient Instructions: Antibiotic Form Stand Alone Forms: General Discharge Information Follow-up/Referrals: Nikko Anderson MD [Physician] - Jethro Gore MD [Physician] - Cleveland Gmienez MD [Physician] - Discharge Medications: Continued furosemide 40 mg Tablet 40 mg PO BID Qty: 60 0RF carvedilol [Coreg] 25 mg Tablet
--- NOTE | 2023-07-24 10:33 | P.CDI_ITS ---
CDI Query Clarification Request Documented history of CHF. CHF noted in the assessment and plan. Documented use of LifeVest. Lasix and Entresto listed as home medications. Patient receiving Lasix and Entresto. Please specify type and acuity of heart failure if known. * Acute * Chronic * Acute on Chronic * Unknown * Systolic * Diastolic * Combined Systolic and Diastolic * Unknown
--- NOTE | 2023-07-24 11:37 | WPDANESPN ---
Anes - Prog Note Post-Op Date/Time: 07/24/23 11:37 Cardiovascular status: normal Respiratory status: normal Airway patency: baseline Mental status: baseline Post-Op hydration status: normal Vital Signs: Last Vital Signs Temp 97.0 F L 07/24/23 06:00 Pulse 94 07/24/23 08:53 Resp 20 07/24/23 06:00 BP 132/93 H 07/24/23 06:00 Pulse Ox 98 07/24/23 06:00 O2 Del Method Room Air 07/24/23 08:50 Pain Score (VAS): 0 I/O: Intake & Output 07/23/23 07/24/23 07/24/23 23:59 07:59 15:59 Intake Total 3240 1450 240 Output Total 4050 2650 Balance -810 -1200 240 Laboratory Tests 07/23/23 05:58 07/23/23 05:58 07/23/23 07/24/23 12:24 05:46 APTT 72.7 H 65.0 H Post-procedural complaints: none Patient Feedback: Patient satisfied with anesthetic care.
== END 2023-07-24 12:01 | disposition home or self-care (01) | DRG 468 ==
LOC: ANHED 15:34 → ANH3MED 17:29
PROVIDERS: Internal Medicine; Physician Assistant; Admitting Provider Family Medicine; Emergency Provider Emergency Medicine; Visit Provider Internal Medicine
PROC: B24BZZ4 Ultrasonography of Heart with Aorta, Transesophageal (ICD-10-PCS; CPT 93312; principal; 2023-07-23 12:30)
DX: N28.0 Ischemia and infarction of kidney (principal); I51.3 Intracardiac thrombosis, not elsewhere classified; I48.20 Chronic atrial fibrillation, unspecified; I50.42 Chronic combined systolic (congestive) and diastolic (congestive) heart failure; I11.0 Hypertensive heart disease with heart failure; I72.8 Aneurysm of other specified arteries; I71.20 Thoracic aortic aneurysm, without rupture, unspecified; E78.5 Hyperlipidemia, unspecified; F17.210 Nicotine dependence, cigarettes, uncomplicated; Z79.01 Long term (current) use of anticoagulants
CPT/HCPCS: 36415; 71275; 74175; 74177; 80048; 80053; 80162; 81003; 83690; 83735; 85025; 85027; 85610; 85730; 93312; 93320; 93325; 96361; 96365; 96366; 96375; 96376; 99285; A9270; G0378; G0379; J1170; J1644; J2405; J7030; J7040; Q9967

== ENCOUNTER 2023-10-02 07:40 | Outpatient (CLI) | payer OTHER, SELFPAY ==
--- NOTE | 2023-10-02 07:49 | ECHO_ITS ---
Patient Info Name: Ramiro Esposito Age: 58 years : 1965 Gender: Male Ht: 73 in Wt: 191 lbs BSA: 2.12 m2 HR: 72 bpm BP: 122 / 75 mmHg Technical Quality: Fair Exam Date: 10/02/2023 7:55 AM Exam Location: Echo Lab Patient Status: Outpatient Admit Date: 10/02/2023 Staff Ordering Physician: Delmer Boone DO Juvenile Corrections Officer: Attending Provider: Delmer Boone DO Referring Physician: Paolo QUILES; Exam Type: CA echo doppler color flow Study Info Indications I50.40 - Unspecified combined systolic (congestive) and diastolic (congestive) heart failure Complete two-dimensional, color flow and Doppler transthoracic echocardiogram is performed. Summary 1. Complete two-dimensional, color flow and Doppler transthoracic echocardiogram is performed. 2. Left ventricular chamber dimension is mildly enlarged. 3. Left ventricular systolic function is normal, estimated at 50-55%. 4. The left ventricular diastolic function is grade I diastolic dysfunction. 5. E/e' 4 is not elevated. 6. Right ventricular chamber dimension is mildly enlarged. 7. Right ventricular systolic function is mildly reduced and with mildly abnormal TAPSE 1.6 cm. 8. Left atrial chamber dimension is moderately enlarged. 9. Right atrial chamber dimension is moderately enlarged. 10. There is moderate aortic valve regurgitation. 11. There is mild mitral valve regurgitation. 12. There is trace tricuspid valve regurgitation. 13. RVSP is not calculated due to an inadequate TR jet. 14. There is trace pulmonic regurgitation. 15. The aortic root size at the sinus of Valsalva is moderately dilated at 4.4 cm. 16. The prox ascending aorta size is mildly dilated at 4.2 cm. Left Ventricle E/e' 4 is not elevated. Left ventricular chamber dimension is mildly enlarged. Left ventricular systolic function is normal, estimated at 50-55%. The left ventricular diastolic function is grade I diastolic dysfunction. Right Ventricle Right ventricular systolic function is mildly reduced and with mildly abnormal TAPSE 1.6 cm. Right ventricular chamber dimension is mildly enlarged. Left Atria Left atrial chamber dimension is moderately enlarged. Right Atria Right atrial chamber dimension is moderately enlarged. Aortic Valve The aortic valve is trileaflet. There is no aortic valve stenosis. There is moderate aortic valve regurgitation. Pulmonic Valve There is trace pulmonic regurgitation. Mitral Valve There is no mitral valve stenosis. There is mild mitral valve regurgitation. Tricuspid Valve There is trace tricuspid valve regurgitation. RVSP is not calculated due to an inadequate TR jet. Pericardium/Pleural There is no pericardial effusion. Inferior Vena Cava Normal inferior vena cava with >50% collapse upon inspiration consistent with normal right atrial pressure, 5 mmHg. Aorta The aortic root size at the sinus of Valsalva is moderately dilated at 4.4 cm. The prox ascending aorta size is mildly dilated at 4.2 cm. Left Ventricular Outflow Tract Name Value Normal LVOT 2D LVOT Diameter 2.1 cm LVOT Doppler LVOT Peak Gradient 3 mmHg LVOT Mean Gradient 2 mmHg LVOT VTI 1
== END 2023-10-02 07:41 | disposition home or self-care (01) ==
LOC: ANHCARD 07:41
PROVIDERS: PCP Nurse Practitioner Family; Visit Provider Internal Medicine Cardiovascular Disease
DX: I50.40 Unspecified combined systolic (congestive) and diastolic (congestive) heart failure (principal); I34.0 Nonrheumatic mitral (valve) insufficiency; I35.1 Nonrheumatic aortic (valve) insufficiency
CPT/HCPCS: 93306

== ENCOUNTER 2023-12-16 13:31 | Outpatient (CLI) | payer OTHER, SELFPAY ==
--- NOTE | ~2023-12-16 | CT_ITS ---
EXAMINATION: CTA chest abdomen DATE: 12/16/2023 13:50 INDICATION: Thoracic aortic aneurysm without rupture TECHNIQUE: Computed tomographic angiography (CTA) of the chest and abdomen was performed with 100 cc of Omnipaque-350 intravenous contrast. Additional 3D reconstructions utilizing rotating maximum inten sity projection (MIP) were performed. Automated exposure control and iterative reconstruction Yapta were employed. The dose-length product was 576.13 mGy-cm. COMPARISON: 07/21/2023 FINDINGS: Chest: Unilateral calcified pleural plaque at the posterior left lung which suggests sequela of prior exudat alex effusion. Mild dependent atelectasis in bilateral lower lobes. No pneumonia, pulmonary edema, ple ural effusion or pneumothorax. Mild cardiomegaly. Atherosclerotic coronary artery calcification is. N o pericardial effusion. Fusiform ascending thoracic aortic aneurysm measuring up to 4.7 cm in maximal diameter. No dissection. No significant change in mild mediastinal lymphadenopathy which is likely r eactive. Minimal bilateral gynecomastia. Moderate thoracic spondylosis with chronic mild anterior wed ging of a few mid thoracic vertebral bodies. Abdomen: Liver, gallbladder, pancreas and right kidney are normal. There are regions of cortical scarring at t he interpolar region of the left kidney likely sequela prior infection or infarction. There is also s carring also likely sequela of prior infarct at the spleen. Again seen are bilateral ovoid adrenal no dules the larger on the left measuring up to 2.0 x 1.5 cm in both with low-attenuation on prior CT [place] 07/19 consistent with adenomas. Visualized portions of bowels are normal with no obstruction. No pathologically enlarged abdominal lymphadenopathy. 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 Severe upper lumbar spondylosis. IMPRESSION: 1. No significant change in a 4.7 cm fusiform ascending thoracic aortic aneurysm. 2. 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 3. 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 4. Cardiomegaly. Reviewed, dictated and finalized at location A. IMPRESSION: 1. No significant change in a 4.7 cm fusiform ascending thoracic aortic aneurys m. 2. No significant change in 1.3 cm saccular aneurysm at the proximal most commo n hepatic artery near its origin from the celiac axis. 3. Chronic cortical scarring at the spleen and left kidney likely sequela of pr ior infarcts. 4. Cardiomegaly.
== END 2023-12-16 13:32 | disposition home or self-care (01) ==
PROVIDERS: PCP Nurse Practitioner Family; Visit Provider Internal Medicine Cardiovascular Disease
DX: I71.20 Thoracic aortic aneurysm, without rupture, unspecified (principal); I72.8 Aneurysm of other specified arteries; I51.7 Cardiomegaly
CPT/HCPCS: 71275; 74175; Q9967

== ENCOUNTER 2024-12-29 13:29 | Outpatient (CLI) | payer OTHER, SELFPAY ==
--- OUTSIDE RECORDS SUMMARY | 2024-12-29 13:32 | XMS_ITS | Referral Summary ---
Author [place] [facility] [place] [address] [facility] [address] [place] [address] Care Team Providers Care Medical Record Assistant Name Role Phone No, Physician Primary Care Provider [phone] Allergies No known active allergies Medications aspirin 325 mg tablet Take 1 tablet (325 mg total) by mouth daily 30 tablet 11 12/27/2020 Active metoprolol XL (TOPROL-XL) 25 mg extended release tablet Take 1 tablet (25 mg total) by mouth daily 30 tablet 11 02/07/2021 Active Active Problems No known active problems Social History Tobacco Use Types Packs/Day Years Used Date Smoking Tobacco: Every Day Cigarettes Smokeless Tobacco: Never Personal Safety Answer Date Recorded Getting School Help Needed Not on file 07/21 Sex and Gender Information Value Date Recorded Sex Assigned at Not on file 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 Gender Identity Not on file Sexual Orientation Not on file Last Filed Vital Signs Vital Sign Reading Time Taken Comments Blood Pressure 134/82 02/07/2021 9:20 AM CDT Pulse 73 02/07/2021 9:20 AM CDT Temperature - - Respiratory Rate - - Oxygen Saturation 98% 02/07/2021 9:20 AM CDT Inhaled Oxygen Concentration - - Weight 76.7 kg (169 lb) 02/07/2021 9:20 AM CDT Height 188 cm (6' 2) 02/07/2021 9:20 AM CDT Body Mass Index 21.7 02/07/2021 9:20 AM CDT Plan of Treatment Not on file Insurance IDPA Care Teams Medical Record Assistant Relationship Specialty Start Date End Date No, Physician PCP - General 12/26/20
--- OUTSIDE RECORDS SUMMARY | 2024-12-29 13:32 | XMS_ITS | Clinical Summary ---
Author Organization [facility] [place] [address] [facility] [address] [place] [address] Care Team Providers Care Curam Developer Name Role Phone No, Physician Primary Care Provider [phone] Allergies No known active allergies Medications aspirin 325 mg tablet Take 1 tablet (325 mg total) by mouth daily 30 tablet 11 12/27/2020 Active metoprolol XL (TOPROL-XL) 25 mg extended release tablet Take 1 tablet (25 mg total) by mouth daily 30 tablet 11 02/07/2021 Active Active Problems No known active problems Medical History Medical History Date Comments Atrial fibrillation (HCC) Family History Medical History Relation Name Comments Blood Clot Father Relation Name Status Comments Father (Age 63) Social History Tobacco Use Types Packs/Day Years Used Date Smoking Tobacco: Every Day Cigarettes Smokeless Tobacco: Never Personal Safety Answer Date Recorded Getting School Help Needed Not on file 07/21 Sex and Gender Information Value Date Recorded Sex Assigned at Not on file 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
--- NOTE | 2024-12-29 13:41 | ECHO_ITS ---
Patient Info Name: Ramiro Esposito Age: 59 years : 1965 Gender: Male Ht: 73 in Wt: 220 lbs BSA: 2.29 m2 HR: 81 bpm BP: 134 / 107 mmHg Heart Rhythm: Atrial Fibrillation Technical Quality: Fair Exam Date: 12/29/2024 1:50 PM Patient Status: O Admit Date: 12/29/2024 Exam Type: CA echo doppler color flow Complete two-dimensional, color flow and Doppler transthoracic echocardiogram is performed. Coroner Forensic Technician: Crystal Erwin Attending Provider: Delmer Boone DO Summary 1. Complete two-dimensional, color flow and Doppler transthoracic echocardiogram is performed. 2. Left ventricular chamber dimension is normal. 3. Left ventricular systolic function is normal, estimated at 55-60. 4. The left ventricular diastolic function is normal. 5. Atrial fibrillation. 6. E/e' 8 is minimally elevated. 7. Left atrial chamber dimension is severely enlarged. 8. There is mild aortic valve regurgitation. 9. There is trace mitral valve regurgitation. 10. The aortic root size at the sinus of Valsalva is mildly dilated at 4.4 cm. 11. The prox ascending aorta size is mildly dilated at 4.3 cm. Left Ventricle E/e' 8 is minimally elevated. Left ventricular chamber dimension is normal. Left ventricular systolic function is normal, estimated at 55-60. The left ventricular diastolic function is normal. Atrial fibrillation. Right Ventricle Right ventricular chamber dimension is normal. Right ventricular systolic function is normal and with normal TAPSE 2.0 cm. Left Atria Left atrial chamber dimension is severely enlarged. Right Atria Right atrial chamber dimension is normal. Aortic Valve The aortic valve is trileaflet. There is no aortic valve stenosis. There is mild aortic valve regurgitation. Pulmonic Valve There is no pulmonic regurgitation. Mitral Valve There is no mitral valve stenosis. There is trace mitral valve regurgitation. Tricuspid Valve There is no tricuspid valve regurgitation. Pericardium/Pleural There is no pericardial effusion. Inferior Vena Cava Normal inferior vena cava with >50% collapse upon inspiration consistent with normal right atrial pressure, 5 mmHg. Aorta The aortic root size at the sinus of Valsalva is mildly dilated at 4.4 cm. The prox ascending aorta size is mildly dilated at 4.3 cm. Left Ventricular Outflow Tract Name Value Normal LVOT 2D LVOT Diameter 2.2 cm LVOT Doppler LVOT Peak Velocity 83 cm/s LVOT Peak Gradient 3 mmHg LVOT Mean Gradient 1 mmHg LVOT VTI 15 cm LVOT VTI/AV VTI Ratio 1.0 LVOT Stroke Volume 54 ml LVOT CO 2.9 l/min LVOT CI 1.3 l/min/m2 Pulmonic Valve Name Value Normal RVOT Doppler RVOT Peak Velocity 63 cm/s RVOT Peak Gradient 1 mmHg PV Doppler PV Peak Velocity 67 cm/s PV Peak Gradient 2 mmHg Mitral Valve Name Value Normal MV Diastolic Function MV E Peak Velocity 65 cm/s MV A Peak Velocity 35 cm/s MV E/A 1.8 MV Decel Time (PW) 193 ms MV Annular TDI MV E/e' (Septal) 10.6 MV E/e' (Lateral) 7.6 MV E/e' (Average) 9.1 Tricuspid Valve Name Value Normal Estimated PAP/RSVP RA Pressure 5 mmHg <=5 TV Annular TDI TV Lateral [place] s' Velocity 9.4 cm/s >=9.5 Aorta Name Value Normal Ascending Aorta Ao Root Diameter (MM) 4.7 cm Ao Root Diam Index (MM) 2.1 cm/m2 Aortic Valve Name Value Normal AV Doppler AV Peak Velocity 93 cm/s AV Peak Gradient 3 mmHg AV Mean Gradient 2 mmHg AV VTI 15 cm AV Area (Cont Eq VTI) 3.6 cm2 >=3.0 AV Area (Cont Eq Noah) 3.3 cm2 AV DI (Noah) 0.90 AV Regurgitation 2D LVOT Area 3.7 cm2 Ventricles Name Value Normal LV Dimensions 2D/MM IVS Diastolic Thickness (2D) 1.2 cm 0.6-1.0 LVID Diastole (2D) 4.3 cm 4.2-5.8 LVIW Diastolic Thickness (2D) 1.2 cm 0.6-1.0 LVID Systole (2D) 3.4 cm 2.5-4.0 LVOT Diameter 2.2 cm LV Mass (2D Cubed) 188.06 g 88.00-224.00 LV Mass Index (2D Cubed) 82 g/m2 49-115 Relative Wall Thickness (2D) 0.55 <=0.42 LV Fractional Shortening/Ejection Fraction 2D/MM LV Fractional Shortening (2D) 22 % 25-43 LV EF (2D Teichholz) 44 % LV Diastolic Volume (4C MOD) 102 ml LV EF (4C MOD) 49 % LV Diastolic Volume (2C MOD) 86 ml LV EF (2C MOD) 40 % LV Diastolic Volume (BP MOD) 94 ml 62-150 LV Diastolic Volume Index (BP MOD) 41 ml/m2 34-74 LV Systolic Volume (BP MOD) 52 ml 21-61 LV Systolic Volume Index (BP MOD) 23 ml/m2 11-31 LV EF (BP MOD) 45 % 52-72 LV Diastolic Length (4C) 9.1 cm LV Systolic Length (4C) 8.0 cm LV Stroke Volume (4C MOD) 51 ml Atria Name Value Normal LA Dimensions LA Dimension (MM) 4.3 cm 3.0-4.0 LA Volume (4C A-L) 126 ml LA Volume (BP A-L) 129 ml RA Dimensions RA Area (4C) 20.4 cm2 <=18.0 Report Signatures
== END 2024-12-29 13:30 | disposition home or self-care (01) ==
LOC: ANHCARD 13:30
PROVIDERS: PCP Nurse Practitioner Family; Visit Provider Internal Medicine Cardiovascular Disease
DX: I50.40 Unspecified combined systolic (congestive) and diastolic (congestive) heart failure (principal); I48.91 Unspecified atrial fibrillation; I35.1 Nonrheumatic aortic (valve) insufficiency; I51.7 Cardiomegaly
CPT/HCPCS: 93306